=== PATIENT | female | born 1965 | race Caucasian/White ===

== ENCOUNTER → 2016-09-27 | Outpatient (CLI) | payer OTHER ==
--- NOTE | 2016-09-27 14:30 | MR ---
MR lumbar spine wo con DDD, Pain Multiplanar, multiecho imaging of the lumbar spine was obtained without contrast on a 3 Noemy magnet. REFERENCE: Previous study dated 03/07/2006. FINDINGS: Paraspinal soft tissues are normal. Vertebral body height and alignment are maintained. There is no spondylolysis or spondylolisthesis. Cord signal is normal. The conus ends normally at the level of the inferior endplate of L3. At T12-L1, no abnormality is identified. At L1-2, there is mild capsulitis in the facets. At L2-3, there is mild hypertrophic change and capsulitis within the facets. At L3-4, there is mild hypertrophic change within the facets. At L4-5, there is disc space loss. There is fatty endplate change. There is a broad-based disc protru devin extending into the intervertebral foramina bilaterally causing mild, bilateral intervertebral fo raminal narrowing. There is mild hypertrophic change in the facets. At L5-S1, there is a diffuse disc displacement. The intervertebral foramina are well maintained. Ther e hypertrophic changes and capsulitis within the facets. IMPRESSION: 1. DIFFUSE FACET ARTHROPATHY. 2. BROAD-BASED DISC PROTRUSION, L4-5 CAUSING MILD, BILATERAL INTERVERTEBRAL FORAMINAL NARROWING.
== END | disposition home or self-care (01) ==
LOC: RADMRIMAIN 11:55
PROVIDERS: ATTEND Psychiatry & Neurology Neurology
DX: M99.73 Connective tissue and disc stenosis of intervertebral foramina of lumbar region (principal); M51.26 Other intervertebral disc displacement, lumbar region; M46.96 Unspecified inflammatory spondylopathy, lumbar region
CPT/HCPCS: 72148

== ENCOUNTER 2016-12-17 16:06 | Observation (INO) | payer OTHER ==
[2016-12-17] MEDS ORDERED: NITROGLYCERIN OINT 1 INCH/GM PACKET TOPICAL STA (16:27)
[2016-12-17] MEDS ORDERED: ASPIRIN 81 MG CHEW PO STA (16:27)
--- NOTE | 2016-12-17 16:30 | ED ---
General Adult HPI - General Chief complaint: Chest Pain Stated complaint: chest pain Time Seen by Provider: 12/17/16 16:10 Source: patient, EMS, RN notes reviewed Mode of arrival: EMS - History of Present Illness Initial comments: This is a 51-year-old female presents emergency Department with a past medical history significant for smoking but she did quit 3 years ago. Patient has a past history for high cholesterol. Patient states she has a history of angina as well. Patient states she started having chest pain 3 days ago and has been intermittent about 3 times a day lasting about 20 minutes a time. Patient states the pain is in the center chest goes a little bit to the right down her left arm and into her jaw. Patient states she's mild short of breath with this occurs. Patient denies any diaphoresis. Patient denies any nausea vomiting. Patient states she has had no abdominal pain. Patient denies any diarrhea recently. Patient denies any recent fever chills or cough. Patient denies any lightheadedness dizziness or near syncopal episode. Patient states this pain is different than the pain she normally gets with her typical angina. Patient states she does have a strong family history of heart disease. - Related Data Home Medications Medication Instructions Recorded Confirmed ALPRAZolam [Xanax] 0.5 mg PO QID PRN 12/17/16 12/17/16 Aspirin 81 mg PO DAILY 12/17/16 12/17/16 Cholecalciferol [Vitamin D3] 400 unit PO DAILY 12/17/16 12/17/16 Gemfibrozil [Lopid] 600 mg PO DAILY 12/17/16 12/17/16 HYDROcodone/APAP 7.5-325MG [[place] 1 tab PO QID PRN 12/17/16 12/17/16 7.5-325] [place]-3 Fatty Acids [[place]-3] 1,000 mg PO DAILY 12/17/16 12/17/16 Orphenadrine [Norflex] 100 mg PO BID 12/17/16 12/17/16 PARoxetine HCL [Paxil] 20 mg PO DAILY 12/17/16 12/17/16 Pantoprazole [Protonix] 40 mg PO DAILY 12/17/16 12/17/16 Ranitidine HCl [Zantac] 150 mg PO BID 12/17/16 12/17/16 Topiramate [Topiramate ER] 150 mg PO DAILY 12/17/16 12/17/16 Triphrocaps 1 cap PO HS 12/17/16 12/17/16 clonazePAM [KlonoPIN] 1 mg PO HS 12/17/16 12/17/16 Allergies Allergy/AdvReac Type Severity Reaction Status Date / Time cephalexin [From Keflex] Allergy Rash/Hives Verified 12/17/16 16:56 iodine Allergy Unknown Verified 12/17/16 16:56 metronidazole [From Flagyl] Allergy Rash/Hives Verified 12/17/16 16:56 Penicillins Allergy Unknown Verified 12/17/16 16:56 rosuvastatin [From Crestor] Allergy Unknown Verified 12/17/16 16:56 sulfamethoxazole Allergy Rash/Hives Verified 12/17/16 16:56 [From Bactrim] trimethoprim [From Bactrim] Allergy Rash/Hives Verified 12/17/16 16:56 Review of Systems ROS Statement: Those systems with pertinent positive or pertinent negative responses have been documented in the HPI. ROS Other: All systems not noted in ROS Statement are negative. Past Medical History Past Medical History: Chest Pain / Angina, Hyperlipidemia, Renal Disease History of Any Multi-Drug Resistant Organisms: None Reported Past Surgical History: Section, Cholecystectomy, Orthopedic Surgery Past Psychological History: Anxiety, Depression Smoking Status: Former smoker Past Alcohol Use History: None Reported Past Drug Use History: None Reported General Exam - General Exam Comments Initial Comments: GENERAL: Patient is well-developed and well-nourished. Patient is nontoxic and well- hydrated and is in mild distress. ENT: Neck is soft and supple. No significant lymphadenopathy is noted. Oropharynx is clear. Moist mucous membranes. Neck has full range of motion without eliciting any pain. EYES: The sclera were anicteric and conjunctiva were pink and moist. Extraocular movements were intact and pupils were equal round and reactive to light. Eyelids were unremarkable. PULMONARY: Unlabored respirations. Good breath sounds bilaterally. No audible rales rhonchi or wheezing was noted. CARDIOVASCULAR: There is a regular rate and rhythm without any murmurs gallops or rubs. ABDOMEN: Soft and nontender with normal bowel sounds. No palpable organomegaly was noted. There is no palpable pulsatile mass. SKIN: Skin is clear with no lesions or rashes and otherwise unremarkable. NEUROLOGIC: Patient is alert and oriented x3. Cranial nerves II through XII are grossly intact. Motor and sensory are also intact. Normal speech, volume and content. Symmetrical smile. MUSCULOSKELETAL: Normal extremities with adequate strength and full range of motion. No lower extremity swelling or edema. No calf tenderness. LYMPHATICS: No significant lymphadenopathy is noted PSYCHIATRIC: Normal psychiatric evaluation. Normal interpersonal interactions appears functionally intact in deals appropriately with others. No signs of depression. No signs of anxiety. Course Vital Signs 12/17/16 12/17/16 16:12 16:57 Temperature 98.4 F Pulse Rate 65 72 Respiratory 16 18 Rate Blood Pressure 153/81 122/78 O2 Sat by Pulse 96 98 Oximetry Medical Decision Making - Medical Decision Making EKG shows normal sinus rhythm at 69 bpm AR interval 166 QRS is 84 QT interval 414 QTC is 443. Patient's EKG shows no ST segment elevation or depression or T wave abnormalities are noted. Patient's chest x-ray shows no acute abnormality. Patient had chest pain going down the arm and up into the jaw as well as some shortness of breath/started the patient on heparin because she stated that these pains are worse than her normal angina. - Lab Data Result diagrams: 12/17/16 16:22 12/17/16 16:22 Lab Results 12/17/16 12/17/16 12/17/16 Range/Units 16:22 16:22 16:22 WBC 6.4 (3.8-10.6) k/uL RBC 3.77 L (3.80-5.40) m/uL Hgb 12.6 (11.4-16.0) gm/dL Hct 38.2 (34.0-46.0) % MCV 101.4 H (80.0-100.0) fL MCH 33.5 (25.0-35.0) pg MCHC 33.0 (31.0-37.0) g/dL RDW 12.8 (11.5-15.5) % Plt Count 198 (150-450) k/uL Neutrophils % 56 % Lymphocytes % 36 % Monocytes % 4 % Eosinophils % 1 % Basophils % 1 % Neutrophils # 3.6 (1.3-7.7) k/uL Lymphocytes # 2.3 (1.0-4.8) k/uL Monocytes # 0.3 (0-1.0) k/uL Eosinophils # 0.1 (0-0.7) k/uL Basophils # 0.0 (0-0.2) k/uL Macrocytosis Slight PT (9.0-12.0) sec INR (<1.1) APTT (22.0-30.0) sec Sodium 142 (137-145) mmol/L Potassium 4.4 (3.5-5.1) mmol/L Chloride 110 H (98-107) mmol/L Carbon Dioxide 21 L (22-30) mmol/L Anion Gap 11 mmol/L BUN 25 H (7-17) mg/dL Creatinine 1.08 H (0.52-1.04) mg/dL Est GFR (MDRD) Af Amer >60 (>60 ml/min/1.73 sqM) Est GFR (MDRD) Non-Af 53 (>60 ml/min/1.73 sqM) Glucose 98 (74-99) mg/dL Calcium 9.1 (8.4-10.2) mg/dL Magnesium 2.2 (1.6-2.3) mg/dL Total Bilirubin 0.6 (0.2-1.3) mg/dL AST 30 (14-36) U/L ALT 40 (9-52) U/L Alkaline Phosphatase 104 (38-126) U/L Total Creatine Kinase 104 (30-135) U/L CK-MB (CK-2) 0.9 (0.0-2.4) ng/mL CK-MB (CK-2) Rel Index 0.9 Troponin I <0.012 (0.000-0.034) ng/mL Total Protein 7.8 (6.3-8.2) g/dL Albumin 4.1 (3.5-5.0) g/dL Amylase 56 (30-110) U/L Lipase 94 (23-300) U/L /12/29 Range/Units 16:40 WBC (3.8-10.6) k/uL RBC (3.80-5.40) m/uL Hgb (11.4-16.0) gm/dL Hct (34.0-46.0) % MCV (80.0-100.0) fL MCH (25.0-35.0) pg MCHC (31.0-37.0) g/dL RDW (11.5-15.5) % Plt Count (150-450) k/uL Neutrophils % % Lymphocytes % % Monocytes % % Eosinophils % % Basophils % % Neutrophils # (1.3-7.7) k/uL Lymphocytes # (1.0-4.8) k/uL Monocytes # (0-1.0) k/uL Eosinophils # (0-0.7) k/uL Basophils # (0-0.2) k/uL Macrocytosis PT 10.2 (9.0-12.0) sec INR 1.0 (<1.1) APTT 24.4 (22.0-30.0) sec Sodium (137-145) mmol/L Potassium (3.5-5.1) mmol/L Chloride (98-107) mmol/L Carbon Dioxide (22-30) mmol/L Anion Gap mmol/L BUN (7-17) mg/dL Creatinine (0.52-1.04) mg/dL Est GFR (MDRD) Af Amer (>60 ml/min/1.73 sqM) Est GFR (MDRD) Non-Af (>60 ml/min/1.73 sqM) Glucose (74-99) mg/dL Calcium (8.4-10.2) mg/dL Magnesium (1.6-2.3) mg/dL Total Bilirubin (0.2-1.3) mg/dL AST (14-36) U/L ALT (9-52) U/L Alkaline Phosphatase (38-126) U/L Total Creatine Kinase (30-135) U/L CK-MB (CK-2) (0.0-2.4) ng/mL CK-MB (CK-2) Rel Index Troponin I (0.000-0.034) ng/mL Total Protein (6.3-8.2) g/dL Albumin (3.5-5.0) g/dL Amylase (30-110) U/L Lipase (23-300) U/L Critical Care Time Critical Care Time: Yes Total Critical Care Time: 35 Disposition Clinical Impression: Unstable angina pectoris Disposition: ADMITTED IP TO THIS [facility] Time of Disposition: 17:59
[2016-12-17 16:50] LABS: Basophils % (A) 1 %; CH 33.5; CHCM 33.2; Eosinophils # (A) 0.1 k/uL (0-0.7); Eosinophils % (A) 1 %; HCT 38.2 % (34.0-46.0); HDW 2.81; HGB 12.6 gm/dL (11.4-16.0); Luc # (Auto) 0.15; Luc % (Auto) 2; Lymphocytes # (A) 2.3 k/uL (1.0-4.8); Lymphocytes % (A) 36 %; MCH 33.5 pg (25.0-35.0); MCV 101.4 fL (80.0-100.0); Macrocytosis Slight; Monocytes # (A) 0.3 k/uL (0-1.0); Monocytes % (A) 4 %; Neutrophils # (A) 3.6 k/uL (1.3-7.7); Neutrophils % (A) 56 %; RBC 3.77 m/uL (3.80-5.40); RDW 12.8 % (11.5-15.5); WBC 6.4 k/uL (3.8-10.6); WBC (Perox) 6.52
--- NOTE | 2016-12-17 16:52 | XR ---
EXAMINATION TYPE: XR chest 2V DATE OF EXAM: 12/17/2016 4:49 PM COMPARISON: 05/05/2010 HISTORY: Chest pain, dyspnea, and numbness. TECHNIQUE: Frontal and lateral views of the chest are obtained. FINDINGS: There is no focal air space opacity, pleural effusion, or pneumothorax seen. The cardiac silhouette size is within normal limits. The osseous structures are intact. Previously seen right-s ided dual-lumen dialysis catheter has been removed in the interim. IMPRESSION: No acute cardiopulmonary process.
[2016-12-17 16:57] LABS: ALT 40 U/L (9-52); AST 30 U/L (14-36); Alkaline Phosphatase 104 U/L (38-126); Amylase 56 U/L (30-110); Anion Gap 11 mmol/L; Blood Urea Nitrogen 25 mg/dL (7-17); Calcium 9.1 mg/dL (8.4-10.2); Carbon Dioxide 21 mmol/L (22-30); Chloride 110 mmol/L (98-107); Glucose 98 mg/dL (74-99); Magnesium 2.2 mg/dL (1.6-2.3); Non-African American GFR(MDRD) 53 (>60 ml/min/1.73 sqM); Potassium 4.4 mmol/L (3.5-5.1); Sodium 142 mmol/L (137-145); Total Bilirubin 0.6 mg/dL (0.2-1.3); Total Protein 7.8 g/dL (6.3-8.2)
[2016-12-17 16:59] LABS: Partial Thromboplastin Time 24.4 sec (22.0-30.0); Prothrombin Time 10.2 sec (9.0-12.0)
[2016-12-17 17:17] LABS: Creatine Kinase 104 U/L (30-135)
[2016-12-17 17:29] LABS: Creatine Kinase MB 0.9 ng/mL (0.0-2.4); Troponin I <0.012 ng/mL (0.000-0.034)
[2016-12-17] MEDS ORDERED: HEPARIN SODIUM,PORCINE 5,000 UNIT/ML 1 ML VIAL IV ONE (17:58)
[2016-12-17] MEDS ORDERED: HEPARIN SODIUM,PORCINE/D5W PMX 25,000 UNIT in DEXTROSE/WATER 1 500ML.BAG IV SCH (18:00)
[2016-12-17] MEDS ORDERED: NITROGLYCERIN SL TABS 0.4 MG TAB SUBLINGUAL PRN (18:02)
[2016-12-17] MEDS ORDERED: SODIUM CHLORIDE 0.9% 1,000 ML IV SCH (18:15)
[2016-12-17] MEDS ORDERED: ALPRAZolam 0.5 MG TAB PO PRN (20:52)
--- NOTE | 2016-12-17 20:57 | HP ---
DATE OF ADMISSION: 12/17/2016 CHIEF COMPLAINT: Chest pain. HISTORY OF PRESENT ILLNESS: This is the first admission for this 51-year-old A0 female. She presented to the emergency room with numbness in the left arm and in the right side of the neck. She had no aching in the jaw. Her EKG and enzymes are normal, but she is admitted for observation. She has not had a personal history of heart disease but has a strong family history. REVIEW OF SYSTEMS: She has had no TIAs, CVAs, neurologic deficits, change in vision or hearing, cough, hemoptysis, sputum production, lung disease, murmurs, rheumatic fever, orthopnea, PND, palpitations, syncope, abdominal pain, nausea, hematemesis, melena, hematochezia, colitis, diverticulosis, diverticulitis, hemorrhoids, jaundice, hepatitis, cirrhosis, etc. She has had no hematuria, frequency, urgency, renal disease, diabetes, etc. ALLERGIES: 1. PENICILLIN. 2. CEPHALOSPORINS. 3. SULFA. 4. FLAGYL. 5. CRESTOR. 6. IODINE. Surgically she has had C-sections and a right knee replacement. She has also had a cholecystectomy. She once had a port placed for dialysis when she developed renal failure secondary to Crestor (?). Medications include: 1. Protonix. 2. Paxil. 3. Topamax. 4. Gemfibrozil. 5. Klonopin. 6. Zantac. 7. Norflex. 8. Xanax. 9. Aspirin. 10. Vicodin 7.5. PHYSICAL EXAMINATION: Blood pressure is 144/77 with a pulse 68, respirations of 38, and she is afebrile. In general she appeared to be overweight and in no acute distress. Skin color is normal. Skin is warm and dry. Lymph nodes are not enlarged. Head, ears, eyes, nose, mouth and throat are normal. Neck veins are not distended. Thyroid is not enlarged. Chest is clear. Cardiac exam is normal. Abdomen is soft, nontender. Extremities are normal. Neurologically she is intact. IMPRESSION: 1. Chest pain. 2. History of ( ) 3. History of renal failure. PLAN: 1. Bed rest. 2. IV fluids. 3. Serial EKGs and enzymes.
[2016-12-17 22:29] LABS: Creatine Kinase 85 U/L (30-135)
[2016-12-17] MEDS: HYDROcodone/APAP 5-325MG 1 EACH TAB PO PRN (22:34)
[2016-12-17] MEDS: CYCLOBENZAPRINE 10 MG TAB PO SCH (22:35)
[2016-12-17] MEDS: FAMOTIDINE 20 MG TAB PO SCH (22:35)
[2016-12-17 22:42] LABS: Creatine Kinase MB 0.8 ng/mL (0.0-2.4); Troponin I <0.012 ng/mL (0.000-0.034)
[2016-12-18 00:39] VITALS: BMI 27.5
[2016-12-18] MEDS: NITROGLYCERIN OINT 1 INCH/GM PACKET TOPICAL SCH ×2 (01:04→11:09)
[2016-12-18] MEDS ORDERED: HEPARIN SODIUM,PORCINE 5,000 UNIT/ML 1 ML VIAL IV PRN (03:56)
[2016-12-18 06:08] LABS: Creatine Kinase 99 U/L (30-135)
[2016-12-18 06:21] LABS: Creatine Kinase MB 0.9 ng/mL (0.0-2.4); Troponin I <0.012 ng/mL (0.000-0.034)
[2016-12-18] MEDS: HYDROcodone/APAP 5-325MG 1 EACH TAB PO PRN (06:33)
[2016-12-18 06:39] LABS: Cholesterol 308 mg/dL (<200); HDL Cholesterol 49 mg/dL (40-60); Triglycerides 206 mg/dL (<150)
[2016-12-18 08:34] VITALS: BP 109/67; PULSE 77; RESP 16; TEMP 98.1
[2016-12-18] MEDS: FAMOTIDINE 20 MG TAB PO SCH (08:36)
[2016-12-18] MEDS: CYCLOBENZAPRINE 10 MG TAB PO SCH (08:37)
[2016-12-18] MEDS ORDERED: TOPIRAMATE 25 MG TAB PO SCH (09:00)
[2016-12-18] MEDS ORDERED: CHOLECALCIFEROL 400 UNIT TAB PO SCH (09:00)
[2016-12-18] MEDS ORDERED: PANTOPRAZOLE 40 MG TABLET PO SCH (09:00)
[2016-12-18] MEDS ORDERED: ASPIRIN 325 MG TAB PO SCH (09:00)
[2016-12-18] MEDS ORDERED: PARoxetine 20 MG TAB PO SCH (09:00)
--- NOTE | 2016-12-18 09:32 | P.CRDCN ---
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 The symptoms started about a week ago with intermittent episodes of chest discomfort in the mid of the chest as a sharp kind of discomfort. No specific symptoms of shortness of breath, sweating, dizziness or lightheaded this of syncope. The cardiac enzymes were checked and came in to be unremarkable. The EKG showed sinus rhythm without any ischemic changes. The patient is not aware of any prior history of coronary artery disease. The patient was ruled out for acute coronary event. She needs to have a stress test done. Unfortunately we come to stress test during the weekend. I recommended getting the patient up and around walking and if she has no more chest discomfort she might be able to be discharged home and have the test done as an outpatient. Past Medical History Past Medical History: Chest Pain / Angina, GERD/Reflux, Hyperlipidemia, Renal Disease History of Any Multi-Drug Resistant Organisms: None Reported Past Surgical History: Section, Cholecystectomy, Orthopedic Surgery Past Anesthesia/Blood Transfusion Reactions: No Reported Reaction Past Psychological History: Anxiety, Depression Smoking Status: Former smoker Past Alcohol Use History: None Reported Past Drug Use History: None Reported Medications and Allergies Home Medications Medication Instructions Recorded Confirmed Type ALPRAZolam [Xanax] 0.5 mg PO QID PRN 12/17/16 12/17/16 History Aspirin 81 mg PO DAILY 12/17/16 12/17/16 History Cholecalciferol [Vitamin D3] 400 unit PO DAILY 12/17/16 12/17/16 History Gemfibrozil [Lopid] 600 mg PO DAILY 12/17/16 12/17/16 History HYDROcodone/APAP 7.5-325MG [[place] 1 tab PO QID PRN 12/17/16 12/17/16 History 7.5-325] [place]-3 Fatty Acids [[place]-3] 1,000 mg PO DAILY 12/17/16 12/17/16 History Orphenadrine [Norflex] 100 mg PO BID 12/17/16 12/17/16 History PARoxetine HCL [Paxil] 20 mg PO DAILY 12/17/16 12/17/16 History Pantoprazole [Protonix] 40 mg PO DAILY 12/17/16 12/17/16 History Ranitidine HCl [Zantac] 150 mg PO BID 12/17/16 12/17/16 History Topiramate [Topiramate ER] 150 mg PO DAILY 12/17/16 12/17/16 History Triphrocaps 1 cap PO HS 12/17/16 12/17/16 History clonazePAM [KlonoPIN] 1 mg PO HS 12/17/16 12/17/16 History Allergies Allergy/AdvReac Type Severity Reaction Status Date / Time cephalexin [From Keflex] Allergy Rash/Hives Verified 12/17/16 16:56 iodine Allergy Unknown Verified 12/17/16 16:56 metronidazole [From Flagyl] Allergy Rash/Hives Verified 12/17/16 16:56 Penicillins Allergy Unknown Verified 12/17/16 16:56 rosuvastatin [From Crestor] Allergy Unknown Verified 12/17/16 16:56 sulfamethoxazole Allergy Rash/Hives Verified 12/17/16 16:56 [From Bactrim] trimethoprim [From Bactrim] Allergy Rash/Hives Verified 12/17/16 16:56 Physical Exam Vitals: Vital Signs Temp Pulse Pulse Pulse Resp BP BP 12/18/16 08:00 98.1 F 77 16 109/67 12/18/16 03:55 98 F 71 18 94/52 12/18/16 03:16 18 12/18/16 00:00 18 12/17/16 20:00 18 12/17/16 19:20 97.8 F 80 18 105/58 12/17/16 18:58 98.3 F 77 18 101/56 12/17/16 18:15 98.4 F 74 18 99/52 Pulse Ox 12/18/16 08:00 96 12/18/16 03:55 97 12/18/16 03:16 12/18/16 00:00 12/17/16 20:00 12/17/16 19:20 96 12/17/16 18:58 99 12/17/16 18:15 97 Intake and Output 12/17/16 12/18/16 12/18/16 22:59 06:59 14:59 Intake Total 165.975 420 Balance 165.975 420 Intake: Intake, IV Titration 165.975 Amount Heparin Sodium,Porcine/ 165.975 D5w Pmx 25,000 unit In Dextrose/Water 1 500ml. bag @ 12 UNITS/KG/HR 17. 41 mls/hr IV .Q24H DIANNA Rx #:[id number] Oral 420 Other: Voiding Method Toilet # Voids 2 Weight 72.8 kg - Constitutional General appearance: no acute distress - Respiratory Respiratory: bilateral: CTA - Cardiovascular Rhythm: regular Heart sounds: normal: S1, S2 Results 12/17/16 16:22 12/17/16 16:22 Cardiac Enzymes 12/17/16 12/18/16 Range/Units 21:54 05:35 CK-MB (CK-2) 0.8 0.9 (0.0-2.4) ng/mL Troponin I <0.012 <0.012 (0.000-0.034) ng/mL Coagulation 12/18/16 Range/Units 01:10 APTT 44.1 H (22.0-30.0) sec Lipids 12/18/16 Range/Units 05:35 Triglycerides 206 H (<150) mg/dL Cholesterol 308 H (<200) mg/dL HDL Cholesterol 49 (40-60) mg/dL Current Medications Generic Name Dose Route Start Last Admin Trade Name Freq PRN Reason Stop Dose Admin Hydrocodone Bitart/Acetaminophen 1 each 12/17/16 20:57 12/18/16 06:33 Zap 5-325 PO 1 each Q6HR PRN Administration Pain Alprazolam 0.25 mg 12/17/16 20:52 12/17/16 22:35 Xanax PO 0.25 mg QID PRN Administration Anxiety Aspirin 325 mg 12/18/16 09:00 12/18/16 08:36 Aspirin PO 325 mg DAILY DIANNA Administration Cholecalciferol 400 unit 12/18/16 09:00 12/18/16 08:36 Vitamin D3 PO 400 unit DAILY DIANNA Administration Cyclobenzaprine HCl 10 mg 12/17/16 21:30 12/18/16 08:37 Flexeril PO 10 mg BID DIANNA Administration Famotidine 20 mg 12/17/16 21:30 12/18/16 08:36 Pepcid PO 20 mg BID DIANNA Administration Heparin Sodium (Porcine) 0 unit 12/18/16 03:56 Heparin IV PER PROTOCOL PRN Low PTT Protocol Heparin Sodium/Dextrose 25,000 500 mls @ 17.41 mls/hr 12/17/16 18:00 03:55 unit/ IV Solution IV 13.91 units/kg/hr .Q24H DIANNA 20.2 mls/hr Protocol Titration 12 UNITS/KG/HR Sodium Chloride 1,000 mls @ 20 mls/hr 12/17/16 18:15 12/17/16 18:22 Saline 0.9% IV 20 mls/hr .Q24H DIANNA Administration Multivitamins 1 each 12/18/16 12:00 Theragran PO DAILY@1200 [facility] Nitroglycerin 1 inch 12/18/16 00:00 12/18/16 01:04 Nitro-Bid Oint TOPICAL Not Given Q6HR [facility] Nitroglycerin 0.4 mg 12/17/16 18:02 12/18/16 08:43 Nitrostat SUBLINGUAL 0.4 mg Q5M PRN Administration Chest Pain Pantoprazole Sodium 40 mg 12/18/16 09:00 12/18/16 08:36 Protonix PO 40 mg DAILY DIANNA Administration Paroxetine HCl 20 mg 12/18/16 09:00 12/18/16 08:36 Paxil PO 20 mg DAILY DIANNA Administration Topiramate 75 mg 12/18/16 09:00 12/18/16 08:36 Topamax PO 75 mg BID DIANNA Administration Intake and Output 12/17/16 12/18/16 12/18/16 22:59 06:59 14:59 Intake Total 165.975 420 Balance 165.975 420 Intake: Intake, IV Titration 165.975 Amount Heparin Sodium,Porcine/ 165.975 D5w Pmx 25,000 unit In Dextrose/Water 1 500ml. bag @ 12 UNITS/KG/HR 17. 41 mls/hr IV .Q24H DIANNA Rx #:[id number] Oral 420 Other: Voiding Method Toilet # Voids 2 Weight 72.8 kg Assessment and Plan Plan: Assessment #1 intermittent episodes of atypical chest discomfort #2 dyslipidemia #3 history of smoking Plan #1 the patient was ruled out for acute coronary event #2 stress test as an outpatient
[2016-12-18] MEDS ORDERED: MULTIVITAMINS, THERA 1 EACH TAB PO SCH (12:00)
--- NOTE | 2016-12-18 13:24 | DS ---
DATE OF ADMISSION: 12/17/2016 DATE OF DISCHARGE: 12/18/2016 CHIEF COMPLAINT: Atypical chest pain. HISTORY OF PRESENT ILLNESS: The details of this lady's history and physical can be found in the initial workup. LABORATORY STUDIES: While she was in the hospital she had laboratory studies, the details can be found in the laboratory section of her chart. COURSE IN THE HOSPITAL: After admission, she was placed on bed rest and started on intravenous fluids and she had serial EKGs and enzymes and they were normal. She continued to have chest pain and such she was referred to cardiology. They did an evaluation and felt that she could be safely discharged. She will go home on the usual activity, diet and medications and will follow up with her own physician or with us next week. FINAL DIAGNOSES: 1. Chest pain. 2. History of coronary artery disease. OPERATIONS: None. CONSULTATIONS: Cardiology. She is improved.
== END 2016-12-18 11:40 | disposition home or self-care (01) ==
LOC: EC 16:06 → 3OBS 18:02
PROVIDERS: ADMIT Family Medicine; ATTEND Family Medicine
DX: R07.89 Other chest pain (principal); E78.5 Hyperlipidemia, unspecified; E78.00 Pure hypercholesterolemia, unspecified; I25.10 Atherosclerotic heart disease of native coronary artery without angina pectoris; F41.9 Anxiety disorder, unspecified; K21.9 Gastro-esophageal reflux disease without esophagitis; F32.9 Major depressive disorder, single episode, unspecified; Z87.891 Personal history of nicotine dependence; Z79.899 Other long term (current) drug therapy; Z79.82 Long term (current) use of aspirin; Z88.1 Allergy status to other antibiotic agents; Z88.3 Allergy status to other anti-infective agents; Z88.0 Allergy status to penicillin; Z88.2 Allergy status to sulfonamides; Z88.8 Allergy status to other drugs, medicaments and biological substances; Z82.49 Family history of ischemic heart disease and other diseases of the circulatory system
CPT/HCPCS: 96366 ×2; 96376; 96365; 99291; 36415; 93005; 80061; 80053; 82150; 82550 ×2; 82553 ×2; 83690; 83735; 84484 ×2; 85025; 85610; 85730 ×2; 71020; G0378 ×2; J1644 ×2

== ENCOUNTER → 2017-02-11 | Outpatient (CLI) | payer OTHER ==
[2017-02-11 12:13] LABS: CH 33.6; HDW 2.91; HGB 13.2 gm/dL (11.4-16.0); MCH 34.5 pg (25.0-35.0); MCHC 33.7 g/dL (31.0-37.0); MCV 102.3 fL (80.0-100.0); Macrocytosis Slight; RBC 3.82 m/uL (3.80-5.40); RDW 13.3 % (11.5-15.5)
[2017-02-11 12:43] LABS: Potassium 5.3 mmol/L (3.5-5.1)
== END | disposition home or self-care (01) ==
LOC: LABPAT 11:32
PROVIDERS: ATTEND Internal Medicine Interventional Cardiology
DX: Z01.812 Encounter for preprocedural laboratory examination (principal); I25.10 Atherosclerotic heart disease of native coronary artery without angina pectoris
CPT/HCPCS: 80051; 82565; 84520; 85027

== ENCOUNTER 2017-02-17 06:41 | Day surgery (SDC) | payer OTHER ==
[2017-02-14 14:50] VITALS: BMI 30.5
[~2017-02-17 06:41] MED LIST: ALPRAZolam 0.25 MG TAB PO PRN; ALPRAZolam 0.5 MG TAB PO PRN; ASPIRIN 325 MG TAB PO STA; ATORVASTATIN 80 MG TAB PO STA; NITROGLYCERIN SL TABS 0.4 MG TAB SUBLINGUAL PRN; SODIUM CHLORIDE 0.9% 1,000 ML in EMPTY BAG 1 BAG IV ONE
[2017-02-17 07:31] VITALS: RESP 16; TEMP 98.6
[2017-02-17] MEDS ORDERED: INSULIN LISPRO (humaLOG) 300 UNIT/3 ML VIAL SQ STA (07:38)
[2017-02-17 07:42] LABS: Glucose,Whole Blood 216 mg/dL (75-99)
[2017-02-17] MEDS ORDERED: LIDOCAINE 2% INJ 20 MG/ML SQ ONE (08:39)
[2017-02-17] MEDS ORDERED: MIDAZOLAM 2 MG/2 ML VIAL IV ONE (08:39)
[2017-02-17] MEDS: VERAPAMIL SYRINGE (5 MG/10 ML) INTRAARTER ONE ×2 (08:41→09:13)
[2017-02-17] MEDS ORDERED: BIVALIRUDIN BOLUS 250 MG/50 ML IV ONE (09:04)
[2017-02-17] MEDS ORDERED: BIVALIRUDIN 250 MG in SODIUM CHLORIDE 0.9% 50 ML IV ONE (09:06)
[2017-02-17] MEDS ORDERED: IODIXANOL 320 MG/ML 100 ML INTRAARTER ONE (09:13)
[2017-02-17] MEDS ORDERED: RX INFO: IV CONTRAST WAS GIVEN 1 EACH MISC MISCELLANE PRN (09:19)
--- NOTE | 2017-02-17 09:27 | P.PCN ---
Date of Procedure: 02/17/17 Preoperative Diagnosis: Postoperative Diagnosis: Procedure(s) Performed: Implants: Indications for Procedure: Operative Findings: Description of Procedure: CARDIAC CATHETERIZATION PERFORMING PHYSICIAN: Angelo Min MD, RPVI PROCEDURE PERFORMED: 1. Selective right and left coronary angiogram 2. Fractional flow reserve FFR of the LAD Indication This is a pleasant 52-year-old female patient with a known diabetes, hypertension, dyslipidemia, was experiencing intermittent episodes of chest discomfort consistent with angina. She was brought today to undergo a heart catheterization. APPROACH: Right radial artery COMPLICATION None LEVEL OF SEDATION Moderate with a sedation length of 46 minutes PROCEDURE DESCRIPTION: After obtaining an informed consent and explaining the procedure benefits, risks , and complications, the patient was brought to cardiac cath lab technologist. Local anesthesia was performed using lidocaine subcutaneously. The right radial artery was cannulated using Seldinger technique, the guidewire passed easily, following that we advanced a 6-[place] sheath dilator assembly, the wire and dilator were removed and sheath was flushed. Following that, 2 mg of verapamil along with 3000 unit heparin were given. Selective right and left coronary angiogram using a 6-[place] JR4 and JL 3.5 catheters. Following that we did fractional flow reserve of the LAD. The procedure was completed there was no complication. SELECTIVE CORONARY ANGIOGRAM: The right coronary artery: Is a large caliber vessel and its a dominant vessel. The right coronary artery is diffusely diseased then its 100% occluded by the bifurcation into PDA and PLV branches. It does feel by collateral from the left coronary system. Left main: Is angiographically normal. The left circumflex: It is a large caliber vessel and its and on dominant vessel. The proximal left circumflex appears to have mild disease only and gives rises into a large first OM branch which appears to have mild disease only. The mid left circumflex appears to have mild disease only and the left circumflex distally appears to be angiographically normal. The left anterior descending artery: The proximal LAD appeared to be angiographically normal. The mid LAD by the bifurcation of the first diagonal branch appears to have a lesion seems to be in the range of 60%. The FFR was performed and came in to be ischemic and came in to be out at 0.78. FFR of the LAD: Anticoagulation was initiated using Angiomax. Subsequently and after zeroing the Doppler wire and equalizing between the Doppler wire and the guiding catheter which was JL 3.5 guiding catheter we did an FFR per IV adenosine infusion and the FFR came in to be at 0.78 which is ischemic. 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 POSTPROCEDURE MANAGEMENT: An atherectomy and PCI of the LAD
[2017-02-17] MEDS ORDERED: SODIUM CHLORIDE 0.9% 1,000 ML IV SCH (09:30)
[2017-02-17 09:51] LABS: Glucose,Whole Blood 161 mg/dL (75-99)
[2017-02-17] MEDS ORDERED: ISOSORBIDE MONONITRATE ER 30 MG TAB.ER.24H PO STA (09:51)
[2017-02-17] MEDS ORDERED: HYDROcodone/APAP 7.5-325MG 1 EACH TAB ONE (13:58)
[2017-02-17 15:27] VITALS: BP 112/72; PULSE 16
== END 2017-02-17 16:32 | disposition home or self-care (01) ==
LOC: CATHCVL 06:41
PROVIDERS: ATTEND Internal Medicine Interventional Cardiology
DX: I25.110 Atherosclerotic heart disease of native coronary artery with unstable angina pectoris (principal); I25.82 Chronic total occlusion of coronary artery; E11.9 Type 2 diabetes mellitus without complications; I10 Essential (primary) hypertension; E78.5 Hyperlipidemia, unspecified; Z82.49 Family history of ischemic heart disease and other diseases of the circulatory system; Z79.82 Long term (current) use of aspirin; Z79.899 Other long term (current) drug therapy; Z88.1 Allergy status to other antibiotic agents; Z88.0 Allergy status to penicillin; Z88.2 Allergy status to sulfonamides; Z88.8 Allergy status to other drugs, medicaments and biological substances; Z91.09 Other allergy status, other than to drugs and biological substances; Z87.891 Personal history of nicotine dependence
CPT/HCPCS: 99152; 99153; 93571; 93454; C1887; C1769 ×3; C1894; J2001; J2250; Q9967; J0583; J1644

== ENCOUNTER → 2017-02-21 | Outpatient (CLI) | payer OTHER ==
[2017-02-21 14:45] LABS: Potassium 4.8 mmol/L (3.5-5.1)
== END | disposition home or self-care (01) ==
LOC: LABWHC1 13:46
PROVIDERS: ATTEND Internal Medicine Interventional Cardiology
DX: E78.5 Hyperlipidemia, unspecified (principal); E11.9 Type 2 diabetes mellitus without complications; I10 Essential (primary) hypertension; I25.10 Atherosclerotic heart disease of native coronary artery without angina pectoris; I25.82 Chronic total occlusion of coronary artery
CPT/HCPCS: 36415; 80048

== ENCOUNTER 2017-03-08 07:30 | Day surgery (SDC) | payer OTHER ==
[~2017-03-08 07:30] MED LIST changes: -ATORVASTATIN 80 MG TAB PO STA; -NITROGLYCERIN SL TABS 0.4 MG TAB SUBLINGUAL PRN
[2017-03-08 08:25] LABS: Calcium 9.5 mg/dL (8.4-10.2); Potassium 4.5 mmol/L (3.5-5.1)
[2017-03-08] MEDS ORDERED: MIDAZOLAM 2 MG/2 ML VIAL IVP ONE ×2 (11:46→12:19)
[2017-03-08] MEDS ORDERED: LIDOCAINE 2% INJ 20 MG/ML SQ ONE (11:55)
[2017-03-08] MEDS ORDERED: BIVALIRUDIN BOLUS 250 MG/50 ML IV ONE (12:01)
[2017-03-08] MEDS ORDERED: BIVALIRUDIN 250 MG in SODIUM CHLORIDE 0.9% 35 ML IV ONE (12:01)
[2017-03-08] MEDS: NITROGLYCERIN 1000MCG/10ML SYRINGE INTRACORON ONE ×3 (12:32→13:03)
[2017-03-08] MEDS ORDERED: BIVALIRUDIN 250 MG in SODIUM CHLORIDE 0.9% 50 ML IV ONE (12:43)
[2017-03-08] MEDS ORDERED: HYDROmorphone 2 MG/ML 1 ML SYRINGE IVP ONE (12:46)
[2017-03-08] MEDS ORDERED: niCARdipine Syringe (1,000 mcg/10 mL) INTRACORON ONE (13:03)
[2017-03-08] MEDS ORDERED: PRASUGREL 10 MG TAB PO ONE (13:03)
[2017-03-08] MEDS ORDERED: IODIXANOL 320 MG/ML 100 ML INTRAARTER ONE (13:05)
[2017-03-08] MEDS ORDERED: SODIUM CHLORIDE 0.9% 1,000 ML IV SCH (13:15)
[2017-03-08] MEDS ORDERED: ATROPINE SULFATE 0.1 MG/ML 10ML SYRINGE IV PRN (13:15)
[2017-03-08] MEDS ORDERED: RX INFO: IV CONTRAST WAS GIVEN 1 EACH MISC MISCELLANE PRN (13:15)
[2017-03-08] MEDS ORDERED: NITROGLYCERIN SL TABS 0.4 MG TAB SUBLINGUAL PRN (13:15)
[2017-03-08] MEDS ORDERED: ZOLPIDEM 5 MG TAB PO PRN (13:15)
[2017-03-08] MEDS ORDERED: MAG HYDROX/AL HYDROX/SIMETH 30 ML CUP PO PRN (13:15)
[2017-03-08] MEDS: HYDROcodone/APAP 7.5-325MG 1 EACH TAB PO PRN ×2 (16:01→23:27)
[2017-03-08] MEDS: ALPRAZolam 0.5 MG TAB PO SCH ×2 (16:02→23:27)
[2017-03-08 20:06] VITALS: BMI 30.6
[2017-03-08 20:09] LABS: Glucose,Whole Blood 206 mg/dL (75-99)
[2017-03-08] MEDS: METOPROLOL TARTRATE 12.5 MG TAB PO SCH (20:51)
[2017-03-08] MEDS: FAMOTIDINE 20 MG TAB PO SCH (20:52)
[2017-03-08 20:58] LABS: Glucose,Whole Blood 128 mg/dL (75-99)
[2017-03-08] MEDS ORDERED: clonazePAM 1 MG TAB PO SCH (21:00)
[2017-03-08] MEDS ORDERED: B COMPLEX-VIT C-VIT E-ZINC 1 EACH TAB PO SCH (21:00)
[2017-03-08] MEDS: CYCLOBENZAPRINE 10 MG TAB PO SCH (23:30)
[2017-03-09 04:31] VITALS: TEMP 98.2
[2017-03-09 06:07] LABS: Glucose,Whole Blood 108 mg/dL (75-99)
[2017-03-09 07:22] LABS: Basophils % (A) 0 %; CH 33.1; CHCM 33.2; Eosinophils % (A) 0 %; HCT 35.5 % (34.0-46.0); HGB 11.7 gm/dL (11.4-16.0); Luc # (Auto) 0.13; Luc % (Auto) 2; Lymphocytes # (A) 2.3 k/uL (1.0-4.8); Lymphocytes % (A) 31 %; MCH 33.1 pg (25.0-35.0); MCHC 32.9 g/dL (31.0-37.0); MCV 100.5 fL (80.0-100.0); Macrocytosis Slight; Mean Platelet Volume 6.6; Monocytes # (A) 0.3 k/uL (0-1.0); Monocytes % (A) 4 %; Neutrophils # (A) 4.8 k/uL (1.3-7.7); Neutrophils % (A) 63 %; RBC 3.53 m/uL (3.80-5.40); RDW 13.5 % (11.5-15.5); WBC 7.5 k/uL (3.8-10.6); WBC (Perox) 8.15
[2017-03-09 07:31] LABS: Potassium 4.5 mmol/L (3.5-5.1)
[2017-03-09] MEDS: HYDROcodone/APAP 7.5-325MG 1 EACH TAB PO PRN (08:36)
[2017-03-09] MEDS: METOPROLOL TARTRATE 12.5 MG TAB PO SCH (08:37)
[2017-03-09] MEDS: FAMOTIDINE 20 MG TAB PO SCH (08:37)
[2017-03-09] MEDS: ALPRAZolam 0.5 MG TAB PO SCH (08:38)
[2017-03-09] MEDS: CYCLOBENZAPRINE 10 MG TAB PO SCH (08:38)
[2017-03-09] MEDS ORDERED: PRASUGREL 10 MG TAB PO SCH (09:00)
[2017-03-09] MEDS ORDERED: ASPIRIN 325 MG TAB PO SCH (09:00)
[2017-03-09] MEDS ORDERED: NON-FORMULARY DRUG (Omega-3 Fatty Acids [Omega-3] 1,000 MG) PO SCH (09:00)
[2017-03-09] MEDS ORDERED: PARoxetine 20 MG TAB PO SCH (09:00)
[2017-03-09] MEDS ORDERED: GEMFIBROZIL 600 MG TAB PO SCH (09:00)
[2017-03-09] MEDS ORDERED: CHOLECALCIFEROL 1,000 UNIT TAB PO SCH (09:00)
[2017-03-09] MEDS ORDERED: PANTOPRAZOLE 40 MG TABLET PO SCH (09:00)
[2017-03-09] MEDS ORDERED: TOPIRAMATE 25 MG TAB PO SCH (09:00)
[2017-03-09] MEDS ORDERED: ISOSORBIDE MONONITRATE ER 30 MG TAB.ER.24H PO SCH (09:00)
[2017-03-09 09:15] VITALS: BP 107/58; PULSE 68; RESP 18
--- NOTE | 2017-03-09 10:31 | PTCA ---
PERCUTANEOUS CORONARY INTERVENTION DATE OF SERVICE: 03/08/2017 PERFORMING PHYSICIAN: Angelo Min MD, warp placer. PROCEDURE PERFORMED: 1. An atherectomy of the left anterior descending artery using the CSI orbital atherectomy device. 2. Successful stenting of the mid LAD using 2.75 x 23 and 2.75 x 12 mm Promus Premier KIARA with a good angiographic result. INDICATION: This is a pleasant 52-year-old female patient who was experiencing chest discomfort and underwent a heart catheterization and that showed intermediate lesion involving the mid LAD. She underwent an FFR of that lesion and that came into be ischemic and she was brought today to undergo a PCI of the LAD. APPROACH: Right common femoral artery. COMPLICATION: None. LEVEL OF SEDATION: Moderate with sedation length of 80 minutes. PROCEDURE DESCRIPTION: After obtaining an informed consent, the patient was brought to the cardiac slab puller. The right common femoral artery was cannulated using micropuncture technique. The micropuncture wire passed easily then I placed a 6 Malawian sheath in the right common femoral artery. Subsequently, I did start anticoagulation using Angiomax. After that I did engage the left main using a JL4 guiding catheter. I did wire the LAD using a whisper wire. After that I did exchange my whisper wire into viper wire preparing for atherectomy. After that, I did atherectomize the mid LAD using the CSI orbital atherectomy device on low and high speeds, each time for 30 seconds. After that, I did balloon angioplasty using 2.5 x 12 mm balloon. The following angiogram showed what seems to be dissection in the mid LAD. I covered the dissection using 2.75 x 23 and 2.75 x 12 mm Promus Premier KIARA where the stent was positioned under fluoroscopic guidance and both were deployed under 10 atmospheres for 20 seconds. The following angiogram showed a good angiographic results. The procedure was complete without any complication. POSTPROCEDURE MANAGEMENT: 1. Dual antiplatelet therapy. 2. Risk factor modifications. 3. To follow up with the patient. JUAN
[2017-03-09] MEDS ORDERED: ATORVASTATIN 40 MG TAB PO SCH (21:00)
--- NOTE | 2017-03-12 10:26 | DS ---
ADMISSION DATE: 03/08/2017 DATE OF DISCHARGE: 03/09/2017 BRIEF HISTORY: This is a pleasant 52-year-old female patient who was admitted to the hospital yesterday and underwent an arthrectomy and stenting of the mid-left anterior descending artery with good angiographic results and without any complications. The procedure was performed from the right groin, which was soft and nontender and without any bruises. The patient is going to be discharged home on dual antiplatelet therapy. I will follow up with the patient as an outpatient. JUAN
== END 2017-03-09 12:25 | disposition home or self-care (01) ==
LOC: CATHCVL 07:30 → 6SEL 13:08 → CATHCVL 03-09 12:25
PROVIDERS: ATTEND Internal Medicine Interventional Cardiology
DX: I25.10 Atherosclerotic heart disease of native coronary artery without angina pectoris (principal); I10 Essential (primary) hypertension; F17.200 Nicotine dependence, unspecified, uncomplicated; E78.5 Hyperlipidemia, unspecified; Z82.49 Family history of ischemic heart disease and other diseases of the circulatory system; Z79.82 Long term (current) use of aspirin; Z79.52 Long term (current) use of systemic steroids; Z79.899 Other long term (current) drug therapy; Z88.1 Allergy status to other antibiotic agents; Z88.0 Allergy status to penicillin; Z88.2 Allergy status to sulfonamides; Z88.8 Allergy status to other drugs, medicaments and biological substances; Z91.09 Other allergy status, other than to drugs and biological substances
CPT/HCPCS: 80048 ×2; 85025; 99152; 99153 ×6; C9602; C1769 ×5; C1887; C1725 ×2; C1894; C1714; C1874; C1760; J2001; J2250; J1170; Q9967; J0583

== ENCOUNTER 2017-04-13 08:56 | Day surgery (SDC) | payer OTHER ==
[2017-04-11 13:57] VITALS: BMI 31.0
[~2017-04-13 08:56] MED LIST changes: +ATORVASTATIN 80 MG TAB PO STA; +NITROGLYCERIN SL TABS 0.4 MG TAB SUBLINGUAL PRN
--- NOTE | 2017-04-13 09:29 | XR ---
EXAMINATION TYPE: XR chest 1V DATE OF EXAM: 04/13/2017 COMPARISON: 12/17/2016 HISTORY: Precardiac catheter TECHNIQUE: Single frontal view of the chest is obtained. FINDINGS: There is no focal air space opacity, pleural effusion, or pneumothorax seen. The cardiac silhouette size is within normal limits. The osseous structures are intact. No overt failure. IMPRESSION: No acute process.
[2017-04-13 09:33] LABS: Glucose,Whole Blood 218 mg/dL (75-99)
[2017-04-13] MEDS ORDERED: INSULIN LISPRO (humaLOG) 300 UNIT/3 ML VIAL SQ ONE (09:33)
[2017-04-13 09:35] VITALS: TEMP 98.1
[2017-04-13 09:42] LABS: Basophils % (A) 0 %; CHCM 33.7; Eosinophils # (A) 0.1 k/uL (0-0.7); Eosinophils % (A) 1 %; HCT 35.6 % (34.0-46.0); HDW 3.18; HGB 12.3 gm/dL (11.4-16.0); Luc # (Auto) 0.09; Luc % (Auto) 1; Lymphocytes # (A) 1.2 k/uL (1.0-4.8); Lymphocytes % (A) 11 %; MCHC 34.6 g/dL (31.0-37.0); MCV 98.4 fL (80.0-100.0); Monocytes # (A) 0.2 k/uL (0-1.0); Monocytes % (A) 2 %; Neutrophils # (A) 8.8 k/uL (1.3-7.7); Neutrophils % (A) 85 %; RBC 3.62 m/uL (3.80-5.40); RDW 13.9 % (11.5-15.5); WBC 10.3 k/uL (3.8-10.6); WBC (Perox) 10.48
[2017-04-13 09:57] LABS: Anion Gap 12 mmol/L; Blood Urea Nitrogen 24 mg/dL (7-17); Calcium 9.1 mg/dL (8.4-10.2); Carbon Dioxide 23 mmol/L (22-30); Chloride 109 mmol/L (98-107); Glucose 208 mg/dL (74-99); Non-African American GFR(MDRD) 51 (>60 ml/min/1.73 sqM); Potassium 4.8 mmol/L (3.5-5.1); Sodium 144 mmol/L (137-145)
[2017-04-13] MEDS ORDERED: LIDOCAINE 2% INJ 20 MG/ML (20 ML MDV) ONE (10:42)
[2017-04-13] MEDS ORDERED: MIDAZOLAM 2 MG/2 ML VIAL ONE (10:42)
[2017-04-13] MEDS ORDERED: VERAPAMIL 2.5 MG/ML 2 ML AMP ONE (10:59)
[2017-04-13] MEDS ORDERED: MIDAZOLAM 2 MG/2 ML VIAL IV ONE (11:05)
[2017-04-13] MEDS ORDERED: LIDOCAINE 2% INJ 20 MG/ML SQ ONE (11:06)
[2017-04-13] MEDS ORDERED: HEPARIN SODIUM 1,000 UN/ML (10ML VL) ONE (11:06)
[2017-04-13] MEDS: VERAPAMIL SYRINGE (5 MG/10 ML) INTRAARTER ONE ×2 (11:14→11:27)
[2017-04-13] MEDS ORDERED: HEPARIN SODIUM 1,000 UN/ML (10ML VL) IV ONE (11:17)
[2017-04-13] MEDS ORDERED: IODIXANOL 320 MG/ML 100 ML INTRAARTER ONE (11:41)
[2017-04-13 14:27] VITALS: BP 133/71
[2017-04-13 15:32] VITALS: PULSE 64; RESP 18
--- NOTE | 2017-04-15 09:43 | CC ---
CARDIAC CATHETERIZATION REPORT Date of Service: DATE OF SERVICE: 04/14/2017 PERFORMING PHYSICIAN: Angelo Min MD, metal drilling machine operator. PROCEDURE PERFORMED: 1. Selective right and left coronary angiogram. 2. Left heart catheterization. 3. Left ventriculography. INDICATION: This is a pleasant 52-year-old, female patient who is known to have CAD and known to have chronic total occlusion of the RCA as well as stenting of the LAD performed after arterectomy recently, continues to have chest discomfort concerning for angina. APPROACH: Right radial artery. COMPLICATIONS: None. LEVEL OF SEDATION: Moderate with sedation less than 24 minutes. PROCEDURE DESCRIPTION: After obtaining informed consent, the patient was brought to cardiac clinical lab scientist. The right radial artery was cannulated using micropuncture technique and a micropuncture wire was passed easily. Then I placed a 6-Slovenian sheath in the right radial artery. Subsequently I gave the patient 2 mg of and 10,000 units of heparin IV. After that, I did selective right and left coronary angiogram using JR4 and JL3.5 catheters. After that I did left heart catheterization and subsequently left ventriculogram using a 6-Slovenian pigtail catheter. The procedure was completed without any complications. SELECTIVE CORONARY ANGIOGRAM: 1. Right coronary artery is a large caliber vessel. It is a dominant vessel. RCA is chronically occluded in the distal portion and fills by collaterals from the left coronary system. 2. The left main is angiographically normal. It bifurcates into the left circumflex and left anterior descending artery. 3. The left circumflex is a large caliber vessel and it is a nondominant vessel. The proximal left circumflex appears to have mild disease only and gives rise into a large obtuse marginal branch which seems to be angiographically normal. The left circumflex continues after that as a small-caliber vessel in the AV groove and gives rise into a second OM branch which is small caliber vessel. It seems to be angiographically normal. 4. The proximal LAD appears to be angiographically normal. The mid LAD is stented and the stent is patent. The LAD in the mid portion gives rise to small diagonal branch which bifurcates into 2 small branches and both are angiographically normal. The LAD distally appeared to be normal. HEMODYNAMICS: The left ventricular end-diastolic pressure was 20 mmHg and no gradient was identified across aortic valve. LEFT VENTRICULOGRAPHY: Left ventriculography was performed in the MOORE projection using a power injection. The left ventricular systolic function seems to be low normal with EF between 50% to 55% with inferobasal hypokinesia. CONCLUSION: 1. Chronic total occlusion of the right coronary artery which fills by collaterals from the left coronary system and that is known from before. 2. Normal left main coronary artery. 3. Mild disease involving the left circumflex coronary system. 4. Patent stent in the mid left anterior descending. 5. Elevated left ventricular end-diastolic pressure. 6. Normal left ventricular systolic function. POSTPROCEDURE MANAGEMENT: 1. Maximize medical treatment. 2. Follow up with the patient. 3. If the patient continues to have chest discomfort, I would consider proceeding with PCI of the WAITER/WAITRESS TAKE OUT of the right. MMODL / IJN: [id number] /
== END 2017-04-13 16:25 | disposition home or self-care (01) ==
LOC: CATHCVL 08:56
PROVIDERS: ATTEND Internal Medicine Interventional Cardiology
DX: I25.110 Atherosclerotic heart disease of native coronary artery with unstable angina pectoris (principal); I25.82 Chronic total occlusion of coronary artery; I10 Essential (primary) hypertension; Z95.5 Presence of coronary angioplasty implant and graft; Z87.891 Personal history of nicotine dependence; E78.5 Hyperlipidemia, unspecified; Z82.49 Family history of ischemic heart disease and other diseases of the circulatory system; E11.9 Type 2 diabetes mellitus without complications; Z79.82 Long term (current) use of aspirin; Z79.899 Other long term (current) drug therapy
CPT/HCPCS: 71010; 76937; 80048; 85025; 93458

== ENCOUNTER → 2017-08-31 | Outpatient (CLI) | payer OTHER ==
[2017-08-31 16:51] LABS: ALT 34 U/L (9-52); AST 21 U/L (14-36); Cholesterol 218 mg/dL (<200); HDL Cholesterol 40 mg/dL (40-60); LDL Cholesterol,Calculated 113 mg/dL (0-99); Triglycerides 327 mg/dL (<150)
== END | disposition home or self-care (01) ==
LOC: LABWHC1 15:42
PROVIDERS: ATTEND Internal Medicine Interventional Cardiology
DX: E78.2 Mixed hyperlipidemia (principal)
CPT/HCPCS: 36415; 80061; 84450; 84460

== ENCOUNTER → 2018-01-31 | Outpatient (CLI) | payer OTHER ==
--- NOTE | 2018-01-31 13:47 | MR ---
EXAMINATION TYPE: MR brain wo con DATE OF EXAM: 01/31/2018 COMPARISON: Prior MRI brain September 27, 2012 HISTORY: Migraines TECHNIQUE: Multiplanar, multisequence imaging of the brain and brainstem is performed without IV cont rast. FINDINGS: Diffusion weighted images demonstrate no evidence of a recent infarct or other diffusion abnormality. There is no extraaxial fluid collection or new significant white matter signal abnormality. There is single stable 3 mm T2 hyperintense focus right frontal lobe at level of montiel radiata axial image 18 . A few smaller T2 hyperintense foci superior to this are redemonstrated bilaterally. Less than 6 les ions are felt present. The ventricular system and cisternal spaces are normal in size and appearance. The brain volume is age appropriate. Midline structures demonstrate normal morphology. The craniocervical junction appears within normal limits. Normal vascular flow voids are present. Dominant left vertebral artery is redemonstrated. The visualized sinuses are clear on today's study and the globes are intact. Previously visualized suspe cted polyp in left frontal sinus is not clearly seen on current study. IMPRESSION: Stable minimal nonspecific white matter changes may be on basis of ischemic change relate d to product of migraine headaches.
== END | disposition home or self-care (01) ==
LOC: RADMRIMAIN 12:52
PROVIDERS: ATTEND Psychiatry & Neurology Neurology
DX: R90.89 Other abnormal findings on diagnostic imaging of central nervous system (principal)
CPT/HCPCS: 70551

== ENCOUNTER 2018-12-14 09:04 | Observation (INO) | payer OTHER ==
[2018-12-14] MEDS ORDERED: hydrALAZINE HCL 20 MG/ML 1 ML VIAL IVP STA (09:23)
--- NOTE | 2018-12-14 09:28 | ED ---
General Adult HPI - General Chief complaint: Arrhythmia/Palpitations Stated complaint: racing heart Source: patient, RN notes reviewed Mode of arrival: wheelchair Limitations: no limitations - History of Present Illness Initial comments: This a 53-year-old female presents emergency department with past history of a stent. Patient comes in complaining of palpitations at about 3:00 this morning. Patient states this started having chest pain and diaphoresis. Patient also short of breath at that time. Patient states she still having some chest pressure at this time but the palpitations have subsided and she is feeling little bit better. Patient denies any recent fever chills or cough per patient denies any abdominal pain patient denies nausea vomiting diarrhea. Patient denies any headache patient denies numbness weakness. Patient denies lightheadedness dizziness or near syncopal episode. - Related Data Home Medications Medication Instructions Recorded Confirmed Aspirin 81 mg PO DAILY 12/17/16 12/14/18 HYDROcodone/APAP 7.5-325MG [[place] 1 tab PO QID PRN 12/17/16 12/14/18 7.5-325] [place]-3 Fatty Acids [[place]-3] 1,000 mg PO DAILY 12/17/16 12/14/18 Orphenadrine [Norflex] 100 mg PO BID 12/17/16 12/14/18 PARoxetine HCL [Paxil] 20 mg PO DAILY 12/17/16 12/14/18 Pantoprazole [Protonix] 40 mg PO DAILY 12/17/16 12/14/18 Metoprolol Tartrate [Lopressor] 12.5 mg PO BID 02/14/17 12/14/18 Nitroglycerin Sl Tabs [Nitrostat] 0.4 mg SUBLINGUAL Q5M PRN 04/11/17 12/14/18 Atorvastatin [Lipitor] 40 mg PO DAILY 12/14/18 12/14/18 B Complex W-C No.20/Folic Acid 1 mg PO DAILY 12/14/18 12/14/18 [Renal Caps Softgel] Cholecalciferol (Vitamin D3) 2,000 unit PO DAILY 12/14/18 12/14/18 [Vitamin D3] Gabapentin [Neurontin] 100 mg PO TID 12/14/18 12/14/18 Isosorbide Mononitrate ER [Imdur] 30 mg PO DAILY 12/14/18 12/14/18 Losartan Potassium [Cozaar] 25 mg PO HS 12/14/18 12/14/18 Magnesium Oxide [Mag-Ox] 250 mg PO DAILY 12/14/18 12/14/18 Metoprolol Tartrate [Lopressor] 25 mg PO BID 12/14/18 12/14/18 Pioglitazone [Actos] 30 mg PO DAILY 12/14/18 12/14/18 Allergies Allergy/AdvReac Type Severity Reaction Status Date / Time cephalexin [From Keflex] Allergy Rash/Hives Verified 12/14/18 10:38 Iodinated Contrast- Oral and Allergy Unknown Verified 12/14/18 10:38 IV Dye [Iodinated Contrast Media - Oral and] iodine Allergy Unknown Verified 12/14/18 10:38 metronidazole [From Flagyl] Allergy Rash/Hives Verified 12/14/18 10:38 Penicillins Allergy Unknown Verified 12/14/18 10:38 rosuvastatin [From Crestor] Allergy Unknown Verified 12/14/18 10:38 sulfamethoxazole Allergy Rash/Hives Verified 12/14/18 10:38 [From Bactrim] trimethoprim [From Bactrim] Allergy Rash/Hives Verified 12/14/18 10:38 Review of Systems ROS Statement: Those systems with pertinent positive or pertinent negative responses have been documented in the HPI. ROS Other: All systems not noted in ROS Statement are negative. Past Medical History Past Medical History: Coronary Artery Disease (CAD), Chest Pain / Angina, GERD/Reflux, Hyperlipidemia, Osteoarthritis (OA), Renal Disease Additional Past Medical History / Comment(s): ."borderline" diabetic, past hx. 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 History of Any Multi-Drug Resistant Organisms: None Reported Past Surgical History: Section, Cholecystectomy, Heart Catheterization With Stent, Orthopedic Surgery Additional Past Surgical History / Comment(s): C/S x3, right knee replaced, Hemodialysis catheter inserted and removed. Past Anesthesia/Blood Transfusion Reactions: No Reported Reaction, Motion Sickness Date of Last Stent Placement:: 03/08/17 Past Psychological History: Anxiety, Depression Smoking Status: Former smoker Past Alcohol Use History: Occasional Past Drug Use History: None Reported - Past Family History Brother(s) Family Medical History: Cancer Mother Family Medical History: Cancer, Diabetes Mellitus, Renal Disease General Exam - General Exam Comments Initial Comments: GENERAL: Patient is well-developed and well-nourished. Patient is nontoxic and well- hydrated and is in mild distress. ENT: Neck is soft and supple. No significant lymphadenopathy is noted. Oropharynx is clear. Moist mucous membranes. Neck has full range of motion without eliciting any pain. EYES: The sclera were anicteric and conjunctiva were pink and moist. Extraocular movements were intact and pupils were equal round and reactive to light. Eyelids were unremarkable. PULMONARY: Unlabored respirations. Good breath sounds bilaterally. No audible rales rhonchi or wheezing was noted. CARDIOVASCULAR: There is a regular rate and rhythm without any murmurs gallops or rubs. ABDOMEN: Soft and nontender with normal bowel sounds. No palpable organomegaly was noted. There is no palpable pulsatile mass. SKIN: Skin is clear with no lesions or rashes and otherwise unremarkable. NEUROLOGIC: Patient is alert and oriented x3. Cranial nerves II through XII are grossly intact. Motor and sensory are also intact. Normal speech, volume and content. Symmetrical smile. MUSCULOSKELETAL: Normal extremities with adequate strength and full range of motion. No lower extremity swelling or edema. No calf tenderness. LYMPHATICS: No significant lymphadenopathy is noted PSYCHIATRIC: Normal psychiatric evaluation. Limitations: no limitations Course Vital Signs 12/14/18 12/14/18 12/14/18 09:06 10:00 11:00 Temperature 99.2 F Pulse Rate 82 Respiratory 18 Rate Blood Pressure 148/92 128/68 101/55 O2 Sat by Pulse 98 97 97 Oximetry Medical Decision Making - Medical Decision Making EKG shows normal sinus rhythm at 67 bpm IN interval is 166 QRS is 86 QT interval 400 QTC is 422. Chest x-ray shows no acute abnormality. Patient had no reoccurrence of any palpitations in the emergency department. Patient states the pressure has gone away while she sits here resting. I started the patient heparin because of the unstable angina. I gave the patient has been Nitropaste emergency department. I continue the heparin Nitropaste and aspirin on the floor. I spoke with some physicians agreed to admit the patient admitted the patient I wrote admit orders I consulted cardiology. - Lab Data Result diagrams: 12/14/18 09:46 12/14/18 09:46 Lab Results 12/14/18 12/14/18 12/14/18 Range/Units 09:46 09:46 09:46 WBC 4.4 (3.8-10.6) k/uL RBC 3.58 L (3.80-5.40) m/uL Hgb 12.0 (11.4-16.0) gm/dL Hct 36.0 (34.0-46.0) % MCV 100.6 H (80.0-100.0) fL MCH 33.5 (25.0-35.0) pg MCHC 33.2 (31.0-37.0) g/dL RDW 14.3 (11.5-15.5) % Plt Count 169 (150-450) k/uL Neutrophils % 66 % Lymphocytes % 25 % Monocytes % 4 % Eosinophils % 2 % Basophils % 0 % Neutrophils # 2.9 (1.3-7.7) k/uL Lymphocytes # 1.1 (1.0-4.8) k/uL Monocytes # 0.2 (0-1.0) k/uL Eosinophils # 0.1 (0-0.7) k/uL Basophils # 0.0 (0-0.2) k/uL Macrocytosis Slight PT 9.5 (9.0-12.0) sec INR 0.9 (<1.2) APTT 22.4 (22.0-30.0) sec Sodium 139 (137-145) mmol/L Potassium 5.0 (3.5-5.1) mmol/L Chloride 105 (98-107) mmol/L Carbon Dioxide 25 (22-30) mmol/L Anion Gap 9 mmol/L BUN 20 H (7-17) mg/dL Creatinine 0.84 (0.52-1.04) mg/dL Est GFR (CKD-EPI)AfAm >90 (>60 ml/min/1.73 sqM) Est GFR (CKD-EPI)NonAf 78 (>60 ml/min/1.73 sqM) Glucose 294 H (74-99) mg/dL Calcium 9.8 (8.4-10.2) mg/dL Magnesium 1.7 (1.6-2.3) mg/dL Total Bilirubin 0.6 (0.2-1.3) mg/dL AST 34 (14-36) U/L ALT 34 (9-52) U/L Alkaline Phosphatase 94 (38-126) U/L Troponin I (0.000-0.034) ng/mL Total Protein 7.4 (6.3-8.2) g/dL Albumin 4.1 (3.5-5.0) g/dL TSH 2.880 (0.465-4.680) mIU/L Free T4 0.84 (0.78-2.19) ng/dL 12/14/18 Range/Units 09:46 WBC (3.8-10.6) k/uL RBC (3.80-5.40) m/uL Hgb (11.4-16.0) gm/dL Hct (34.0-46.0) % MCV (80.0-100.0) fL MCH (25.0-35.0) pg MCHC (31.0-37.0) g/dL RDW (11.5-15.5) % Plt Count (150-450) k/uL Neutrophils % % Lymphocytes % % Monocytes % % Eosinophils % % Basophils % % Neutrophils # (1.3-7.7) k/uL Lymphocytes # (1.0-4.8) k/uL Monocytes # (0-1.0) k/uL Eosinophils # (0-0.7) k/uL Basophils # (0-0.2) k/uL Macrocytosis PT (9.0-12.0) sec INR (<1.2) APTT (22.0-30.0) sec Sodium (137-145) mmol/L Potassium (3.5-5.1) mmol/L Chloride (98-107) mmol/L Carbon Dioxide (22-30) mmol/L Anion Gap mmol/L BUN (7-17) mg/dL Creatinine (0.52-1.04) mg/dL Est GFR (CKD-EPI)AfAm (>60 ml/min/1.73 sqM) Est GFR (CKD-EPI)NonAf (>60 ml/min/1.73 sqM) Glucose (74-99) mg/dL Calcium (8.4-10.2) mg/dL Magnesium (1.6-2.3) mg/dL Total Bilirubin (0.2-1.3) mg/dL AST (14-36) U/L ALT (9-52) U/L Alkaline Phosphatase (38-126) U/L Troponin I <0.012 (0.000-0.034) ng/mL Total Protein (6.3-8.2) g/dL Albumin (3.5-5.0) g/dL TSH (0.465-4.680) mIU/L Free T4 (0.78-2.19) ng/dL Critical Care Time Critical Care Time: Yes Total Critical Care Time: 35 Disposition Clinical Impression: Palpitations, Unstable angina Disposition: ADMITTED IP TO THIS HOSP Referrals: Kal Park MD [Primary Care Provider] - 1-2 days Time of Disposition: 11:19
[2018-12-14 10:24] LABS: ALT 34 U/L (9-52); AST 34 U/L (14-36); Albumin 4.1 g/dL (3.5-5.0); Alkaline Phosphatase 94 U/L (38-126); Anion Gap 9 mmol/L; Blood Urea Nitrogen 20 mg/dL (7-17); Calcium 9.8 mg/dL (8.4-10.2); Carbon Dioxide 25 mmol/L (22-30); Chloride 105 mmol/L (98-107); Glucose 294 mg/dL (74-99); Magnesium 1.7 mg/dL (1.6-2.3); Sodium 139 mmol/L (137-145); Total Bilirubin 0.6 mg/dL (0.2-1.3); Total Protein 7.4 g/dL (6.3-8.2)
--- NOTE | 2018-12-14 10:26 | XR ---
EXAMINATION TYPE: XR chest 2V DATE OF EXAM: 12/14/2018 COMPARISON: Prior chest x-ray 04/13/2017 HISTORY: Dysrhythmia TECHNIQUE: Frontal and lateral views of the chest are obtained. FINDINGS: There is no focal air space opacity, pleural effusion, or pneumothorax seen. The cardiac silhouette size is within normal limits. The osseous structures are intact. IMPRESSION: No acute cardiopulmonary process.
[2018-12-14 10:29] LABS: INR 0.9 (<1.2); Partial Thromboplastin Time 22.4 sec (22.0-30.0); Prothrombin Time 9.5 sec (9.0-12.0)
[2018-12-14 10:41] LABS: T4, Free (Free Thyroxine) 0.84 ng/dL (0.78-2.19)
[2018-12-14 10:51] LABS: Basophils % (A) 0 %; Eosinophils # (A) 0.1 k/uL (0-0.7); Eosinophils % (A) 2 %; Lymphocytes # (A) 1.1 k/uL (1.0-4.8); Lymphocytes % (A) 25 %; MCH 33.5 pg (25.0-35.0); MCHC 33.2 g/dL (31.0-37.0); MCV 100.6 fL (80.0-100.0); Macrocytosis Slight; Mean Platelet Volume 8.1; Monocytes # (A) 0.2 k/uL (0-1.0); Monocytes % (A) 4 %; Neutrophils # (A) 2.9 k/uL (1.3-7.7); Neutrophils % (A) 66 %; Platelet Count 169 k/uL (150-450); RBC 3.58 m/uL (3.80-5.40); RDW 14.3 % (11.5-15.5); WBC 4.4 k/uL (3.8-10.6)
[2018-12-14] MEDS ORDERED: ASPIRIN 81 MG PO STA (11:17)
[2018-12-14] MEDS ORDERED: NITROGLYCERIN OINT 1 INCH/GM PACKET TOPICAL STA (11:17)
[2018-12-14] MEDS ORDERED: HEPARIN SODIUM,PORCINE 5,000 UNIT/ML 1 ML VIAL IV ONE (11:17)
[2018-12-14] MEDS ORDERED: NITROGLYCERIN SL TABS 0.4 MG TAB SUBLINGUAL PRN (11:19)
[2018-12-14] MEDS ORDERED: HEPARIN SOD,PORK IN 0.45% NACL 25,000 UNIT in 0.45% NACL 1 250ML.BAG IV SCH (11:30)
--- NOTE | 2018-12-14 11:47 | P.HPIM ---
History of Present Illness H&P Date: 12/14/18 The patient is a 53-year-old female with past medical history of CAD status post 1 stent (February 2017), diabetes mellitus, history of smoking, and hyperlipidemia presents to the ED with complaints of chest discomfort with shortness of breath. The patient reports that upon waking up this morning at 6 AM, she noticed being slightly short of breath. She then developed a right sided chest pain, with s udden onset at around 8 AM, with no alleviating or exacerbating features, nonexertional, 6 out of 10, nonradiating, pressure-like, constant, which occurred for roughly an hour and resolved spontaneously. At time of interview, the patient notes that she continues to have mild 2 out of 10 right-sided chest discomfort. The patient notes she's never had pain like this before and had associated palpitations, shortness of breath, some nausea, and diaphoresis. She otherwise denied cough, fever, chills, dysuria, or abdominal pain. Patient underwent an extensive evaluation in the ED with troponins less than 0.012, WBC 4.4, hemoglobin 12.0, sodium 139, potassium 5.0, and creatinine 0.84. Chest x- ray was unremarkable and EKG showed normal sinus rhythm at 67 bpm with no acute ST/T-wave changes noted. The patient was subsequently admitted to the medicine service under observation status for evaluation by cardiology. Review of Systems Pertinent positives and negatives as discussed in HPI, a complete review of systems was performed and all other systems are negative. Past Medical History Past Medical History: Coronary Artery Disease (CAD), Chest Pain / Angina, GERD/Reflux, Hyperlipidemia, Osteoarthritis (OA), Renal Disease Additional Past Medical History / Comment(s): ."borderline" diabetic, past hx. 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 History of Any Multi-Drug Resistant Organisms: None Reported Past Surgical History: Section, Cholecystectomy, Heart Catheterization With Stent, Orthopedic Surgery Additional Past Surgical History / Comment(s): C/S x3, right knee replaced, Hemodialysis catheter inserted and removed. Past Anesthesia/Blood Transfusion Reactions: No Reported Reaction, Motion Sickness Date of Last Stent Placement:: 03/08/17 Past Psychological History: Anxiety, Depression Smoking Status: Former smoker Past Alcohol Use History: Occasional Past Drug Use History: None Reported - Past Family History Brother(s) Family Medical History: Cancer Mother Family Medical History: Cancer, Diabetes Mellitus, Renal Disease Medications and Allergies Home Medications Medication Instructions Recorded Confirmed Type Aspirin 81 mg PO DAILY 12/17/16 12/14/18 History HYDROcodone/APAP 7.5-325MG [[place] 1 tab PO QID PRN 12/17/16 12/14/18 History 7.5-325] [place]-3 Fatty Acids [[place]-3] 1,000 mg PO DAILY 12/17/16 12/14/18 History Orphenadrine [Norflex] 100 mg PO BID 12/17/16 12/14/18 History PARoxetine HCL [Paxil] 20 mg PO DAILY 12/17/16 12/14/18 History Pantoprazole [Protonix] 40 mg PO DAILY 12/17/16 12/14/18 History Metoprolol Tartrate [Lopressor] 12.5 mg PO BID 02/14/17 12/14/18 History Nitroglycerin Sl Tabs [Nitrostat] 0.4 mg SUBLINGUAL Q5M PRN 04/11/17 12/14/18 History Atorvastatin [Lipitor] 40 mg PO DAILY 12/14/18 12/14/18 History B Complex W-C No.20/Folic Acid 1 mg PO DAILY 12/14/18 12/14/18 History [Renal Caps Softgel] Cholecalciferol (Vitamin D3) 2,000 unit PO DAILY 12/14/18 12/14/18 History [Vitamin D3] Gabapentin [Neurontin] 100 mg PO TID 12/14/18 12/14/18 History Isosorbide Mononitrate ER [Imdur] 30 mg PO DAILY 12/14/18 12/14/18 History Losartan Potassium [Cozaar] 25 mg PO HS 12/14/18 12/14/18 History Magnesium Oxide [Mag-Ox] 250 mg PO DAILY 12/14/18 12/14/18 History Metoprolol Tartrate [Lopressor] 25 mg PO BID 12/14/18 12/14/18 History Pioglitazone [Actos] 30 mg PO DAILY 12/14/18 12/14/18 History Allergies Allergy/AdvReac Type Severity Reaction Status Date / Time cephalexin [From Keflex] Allergy Rash/Hives Verified 12/14/18 10:38 Iodinated Contrast- Oral and Allergy Unknown Verified 12/14/18 10:38 IV Dye [Iodinated Contrast Media - Oral and] iodine Allergy Unknown Verified 12/14/18 10:38 metronidazole [From Flagyl] Allergy Rash/Hives Verified 12/14/18 10:38 Penicillins Allergy Unknown Verified 12/14/18 10:38 rosuvastatin [From Crestor] Allergy Unknown Verified 12/14/18 10:38 sulfamethoxazole Allergy Rash/Hives Verified 12/14/18 10:38 [From Bactrim] trimethoprim [From Bactrim] Allergy Rash/Hives Verified 12/14/18 10:38 Physical Exam Vitals: Vital Signs Temp Pulse Resp BP Pulse Ox 12/14/18 11:00 101/55 97 12/14/18 10:00 128/68 97 12/14/18 09:06 99.2 F 82 18 148/92 98 Intake and Output 12/13/18 12/14/18 12/14/18 22:59 06:59 14:59 Other: Weight 97.522 kg General: non toxic, no distress, appears at stated age, obese Derm: no unusual rashes/lesions no unusual ecchymoses, warm, dry Head: atraumatic, normocephalic, symmetric Eyes: EOMI, no lid lag, anicteric sclera, pupils equal round reactive to light ENT: Nose and ears atraumatic, no thrush, no pharyngeal erythema Neck: No thyromegaly, no cervical lymphadenopathy, trachea midline, supple Mouth: no lip lesion, mucus membranes moist Cardiovascular: S1S2 reg, no murmur, positive posterior tibial pulse bilateral, no edema, capillary refill less than 2 seconds Lungs: CTA bilateral, no rhonchi, no rales , no accessory muscle use Abdominal: soft, nontender to palpation, no guarding, no appreciable organomeg horacio, normal bowel sounds Ext: no gross muscle atrophy, muscle strength 5 out of 5 in all 4 extremities grossly, no contractures, Neuro: CN II-XI grossly intact, light touch intact all 4 extremities, finger to nose within normal limits, Psych: Alert, oriented, appropriate affect Results CBC & Chem 7: 12/14/18 09:46 12/14/18 09:46 Labs: Abnormal Lab Results - Last 24 Hours (Table) 12/14/18 12/14/18 Range/Units 09:46 09:46 RBC 3.58 L (3.80-5.40) m/uL MCV 100.6 H (80.0-100.0) fL BUN 20 H (7-17) mg/dL Glucose 294 H (74-99) mg/dL Assessment and Plan Plan: Chest pain, rule out ACS -Cardiac monitoring -Cardiology consult -Trend troponin and EKG -Continue with aspirin -Continue with nitro paste Diabetes mellitus -Lispro insulin sliding scale -Blood glucose monitoring Hypertension -Resume home meds DVT prophylaxis -Heparin The patient is admitted with an anticipated less than 2 midnight stay for evaluation of chest pain. CODE STATUS:Full Code Discussed with: Patient Anticipated discharge date: 12/15/[address]: Home A total of 35 minutes was spent on the care of this complex patient more than 50% of the time was spent in counseling and care coordination.
[2018-12-14 16:38] LABS: Glucose,Whole Blood 206 mg/dL (75-99)
[2018-12-14] MEDS ORDERED: ACETAMINOPHEN TAB 325 MG TAB PO PRN (16:45)
[2018-12-14] MEDS: NITROGLYCERIN OINT 1 INCH/GM PACKET TOPICAL SCH (16:52)
[2018-12-14] MEDS: HYDROcodone/APAP 7.5-325MG 1 EACH TAB PO PRN (16:58)
[2018-12-14] MEDS: CYCLOBENZAPRINE 10 MG TAB PO SCH (16:58)
[2018-12-14] MEDS: INSULIN ASPART (NovoLOG) 100 UNIT/ML VIAL SQ SCH ×2 (16:59→21:30)
[2018-12-14 20:55] LABS: Glucose,Whole Blood 155 mg/dL (75-99)
[2018-12-14] MEDS: GABAPENTIN 100 MG CAP PO SCH (21:29)
[2018-12-14] MEDS: METOPROLOL TARTRATE 25 MG TAB PO SCH (21:29)
[2018-12-15] MEDS: LOSARTAN 25 MG TAB PO SCH ×2 (00:11→20:10)
[2018-12-15 04:14] LABS: Cholesterol 291 mg/dL (<200); HDL Cholesterol 35 mg/dL (40-60)
[2018-12-15 04:34] LABS: Triglycerides 834 mg/dL (<150)
[2018-12-15] MEDS: NITROGLYCERIN OINT 1 INCH/GM PACKET TOPICAL SCH ×2 (05:20→05:53)
[2018-12-15 05:38] LABS: Glucose,Whole Blood 148 mg/dL (75-99)
[2018-12-15] MEDS: INSULIN ASPART (NovoLOG) 100 UNIT/ML VIAL SQ SCH ×4 (05:53→20:29)
[2018-12-15] MEDS ORDERED: AMINOPHYLLINE 500 MG/20 ML VIAL IV PRN (08:40)
[2018-12-15] MEDS: GABAPENTIN 100 MG CAP PO SCH ×3 (08:40→20:10)
[2018-12-15] MEDS: ISOSORBIDE MONONITRATE ER 30 MG TAB.ER.24H PO SCH (08:40)
[2018-12-15] MEDS: MAGNESIUM OXIDE 400 MG TAB PO SCH (08:40)
[2018-12-15] MEDS: METOPROLOL TARTRATE 25 MG TAB PO SCH ×2 (08:40→20:10)
[2018-12-15] MEDS: CYCLOBENZAPRINE 10 MG TAB PO SCH ×2 (08:40→20:10)
[2018-12-15] MEDS: PARoxetine 20 MG TAB PO SCH (08:40)
[2018-12-15] MEDS ORDERED: REGADENOSON 0.4 MG/5 ML SYRINGE IV ONE (08:40)
[2018-12-15] MEDS: ASPIRIN 325 MG TAB PO SCH (08:40)
[2018-12-15] MEDS ORDERED: CAFFEINE CITRATE 60 MG/3 ML VIAL IV PRN (08:40)
--- NOTE | 2018-12-15 08:40 | P.CRDCN ---
History of Present Illness Consult date: 12/15/18 Requesting physician: Evgeny Chavez Consult reason: chest pain Chief complaint: Chest pain History of present illness: This is a pleasant 53-year-old female who follows regularly with Dr. Patel in the office. 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 She presents to the hospital on this occasion with symptoms of chest discomfort, she states it felt like her heart was racing fast, and she had similar mild discomfort with this. According to the patient the symptoms lasted approximately 3 hours in duration before dissipating. Her EKG on presentation here showed a normal sinus rhythm with no acute changes. Troponins times 3 have been negative. White blood cell count is normal, hemoglobin 12, platelet count 169. Sodium 139, potassium 5.0, BUN 20 and creatinine 0.8. TSH level 2.8, cholesterol 291, triglycerides 834 and HDL 35. Chest x-ray did not reveal any acute cardiopulmonary process. Blood pressure this morning 110/50 with a heart rate in the 70s, 93% on room air. At the time of my examination this morning, the patient is currently chest pain-free. Past Medical History Past Medical History: Coronary Artery Disease (CAD), Chest Pain / Angina, Diabetes Mellitus, GERD/Reflux, Hyperlipidemia, Osteoarthritis (OA), Renal Disease Additional Past Medical History / Comment(s): TyII diabetic, past hx. renal failure in 2011 related to crestor per pt-was on dialysis for 3-4 months, bulging discs with back pain., chondromalacia of knees- right knee junior at times., migraines., History of Any Multi-Drug Resistant Organisms: None Reported Past Surgical History: Section, Cholecystectomy, Heart Catheterization With Stent, Orthopedic Surgery Additional Past Surgical History / Comment(s): C/S x3, right knee replaced, Hemo dialysis catheter inserted and removed. Past Anesthesia/Blood Transfusion Reactions: Motion Sickness Date of Last Stent Placement:: 03/08/17 Past Psychological History: Anxiety Smoking Status: Former smoker Past Alcohol Use History: Occasional Additional Past Alcohol Use History / Comment(s): quit smoking 2012, smoked 1ppd since teens before quitting Past Drug Use History: None Reported - Past Family History Brother(s) Family Medical History: Cancer Mother Family Medical History: Cancer, Diabetes Mellitus, Renal Disease Father Family Medical History: Coronary Artery Disease (CAD), Hyperlipidemia, Myoc ardial Infarction (ME) Additional Family Medical History / Comment(s): Father from [facility] Medications and Allergies Home Medications Medication Instructions Recorded Confirmed Type Aspirin 81 mg PO DAILY 12/17/16 12/14/18 History HYDROcodone/APAP 7.5-325MG [[place] 1 tab PO QID PRN 12/17/16 12/14/18 History 7.5-325] [place]-3 Fatty Acids [[place]-3] 1,000 mg PO DAILY 12/17/16 12/14/18 History Orphenadrine [Norflex] 100 mg PO BID 12/17/16 12/14/18 History PARoxetine HCL [Paxil] 20 mg PO DAILY 12/17/16 12/14/18 History Pantoprazole [Protonix] 40 mg PO DAILY 12/17/16 12/14/18 History Metoprolol Tartrate [Lopressor] 12.5 mg PO BID 02/14/17 12/14/18 History Nitroglycerin Sl Tabs [Nitrostat] 0.4 mg SUBLINGUAL Q5M PRN 04/11/17 12/14/18 History Atorvastatin [Lipitor] 40 mg PO DAILY 12/14/18 12/14/18 History B Complex W-C No.20/Folic Acid 1 mg PO DAILY 12/14/18 12/14/18 History [Renal Caps Softgel] Cholecalciferol (Vitamin D3) 2,000 unit PO DAILY 12/14/18 12/14/18 History [Vitamin D3] Gabapentin [Neurontin] 100 mg PO TID 12/14/18 12/14/18 History Isosorbide Mononitrate ER [Imdur] 30 mg PO DAILY 12/14/18 12/14/18 History Losartan Potassium [Cozaar] 25 mg PO HS 12/14/18 12/14/18 History Magnesium Oxide [Mag-Ox] 250 mg PO DAILY 12/14/18 12/14/18 History Metoprolol Tartrate [Lopressor] 25 mg PO BID 12/14/18 12/14/18 History Pioglitazone [Actos] 30 mg PO DAILY 12/14/18 12/14/18 History Allergies Allergy/AdvReac Type Severity Reaction Status Date / Time cephalexin [From Keflex] Allergy Rash/Hives Verified 12/14/18 10:38 Iodinated Contrast- Oral and Allergy Unknown Verified 12/14/18 10:38 IV Dye [Iodinated Contrast Media - Oral and] iodine Allergy Unknown Verified 12/14/18 10:38 metronidazole [From Flagyl] Allergy Rash/Hives Verified 12/14/18 10:38 Penicillins Allergy Unknown Verified 12/14/18 10:38 rosuvastatin [From Crestor] Allergy Unknown Verified 12/14/18 10:38 sulfamethoxazole Allergy Rash/Hives Verified 12/14/18 10:38 [From Bactrim] trimethoprim [From Bactrim] Allergy Rash/Hives Verified 12/14/18 10:38 Physical Exam Vitals: Vital Signs Temp Pulse Pulse Resp BP BP Pulse Ox 12/15/18 07:37 97.9 F 75 18 111/53 93 L 12/15/18 07:21 74 18 12/15/18 03:33 98.3 F 74 18 123/73 95 12/15/18 00:00 98.2 F 65 18 105/61 100 12/14/18 20:00 98.5 F 64 18 93/53 95 12/14/18 15:44 97.6 F 70 20 97/51 95 12/14/18 15:35 75 18 12/14/18 14:12 97.6 F 75 18 115/64 99 12/14/18 13:33 98 12/14/18 13:24 67 18 100/63 96 12/14/18 11:54 98 F 64 18 109/66 97 12/14/18 11:00 101/55 97 12/14/18 10:00 128/68 97 12/14/18 09:06 99.2 F 82 18 148/92 98 Intake and Output 12/14/18 12/15/18 12/15/18 22:59 06:59 14:59 Intake Total 309.139 Balance 309.139 Intake: Intake, IV Titration 69.139 Amount Heparin Sod,Pork in 0.45% 69.139 NaCl 25,000 unit In 0.45 % NaCl 1 250ml.bag @ 10. 25 UNITS/KG/HR 9.996 mls/ hr IV .Q24H [facility] Rx#: [id number] Oral 240 Other: Voiding Method Toilet Toilet Toilet # Voids 1 1 Weight 98.8 kg PHYSICAL EXAMINATION: GENERAL: 53-year-old female in no acute distress at the time of my examination HEENT: Head is atraumatic, normocephalic. Pupils equal, round. Sclera anicteric. Conjunctiva are clear. Mucous membranes of the mouth are moist. Neck is supple. There is no elevated jugular venous pressure. No carotid bruit is heard. HEART EXAMINATION: Heart S1, S2 normal. No murmur or gallop heard. CHEST EXAMINATION: Lungs are clear to auscultation and precussion. No chest wall tenderness is noted on palpation or with deep breathing. ABDOMEN: Soft, nontender. Bowel sounds are heard. No organomegaly noted. EXTREMITIES: 2+ peripheral pulses with no evidence of peripheral edema and no calf tenderness noted. NEUROLOGIC patient is awake, alert and oriented 3 . . Results 12/14/18 09:46 12/14/18 09:46 Cardiac Enzymes 12/14/18 12/14/18 12/14/18 Range/Units 09:46 09:46 17:27 AST 34 (14-36) U/L Troponin I <0.012 <0.012 (0.000-0.034) ng/mL 12/14/18 Range/Units 21:15 AST (14-36) U/L Troponin I <0.012 (0.000-0.034) ng/mL Coagulation 12/14/18 12/14/18 12/15/18 Range/Units 09:46 17:27 01:10 PT 9.5 (9.0-12.0) sec APTT 22.4 41.9 H 47.1 H (22.0-30.0) sec Lipids 12/14/18 Range/Units 09:46 Triglycerides 834 H (<150) mg/dL Cholesterol 291 H (<200) mg/dL HDL Cholesterol 35 L (40-60) mg/dL CBC 12/14/18 Range/Units 09:46 WBC 4.4 (3.8-10.6) k/uL RBC 3.58 L (3.80-5.40) m/uL Hgb 12.0 (11.4-16.0) gm/dL Hct 36.0 (34.0-46.0) % Plt Count 169 (150-450) k/uL Comprehensive Metabolic Panel 12/14/18 Range/Units 09:46 Sodium 139 (137-145) mmol/L Potassium 5.0 (3.5-5.1) mmol/L Chloride 105 (98-107) mmol/L Carbon Dioxide 25 (22-30) mmol/L BUN 20 H (7-17) mg/dL Creatinine 0.84 (0.52-1.04) mg/dL Glucose 294 H (74-99) mg/dL Calcium 9.8 (8.4-10.2) mg/dL AST 34 (14-36) U/L ALT 34 (9-52) U/L Alkaline Phosphatase 94 (38-126) U/L Total Protein 7.4 (6.3-8.2) g/dL Albumin 4.1 (3.5-5.0) g/dL Current Medications Generic Name Dose Route Start Last Admin Trade Name Freq PRN Reason Stop Dose Admin Acetaminophen 650 mg 12/14/18 16:45 Tylenol Tab PO Q6HR PRN Fever and/ or Pain Hydrocodone Bitart/Acetaminophen 1 each 12/14/18 16:44 12/14/18 16:58 [place] 7.5-325 PO 1 each QID PRN Administration Pain Aspirin 325 mg 12/15/18 09:00 Aspirin PO DAILY [facility] Atorvastatin Calcium 40 mg 12/15/18 09:00 Lipitor PO DAILY [facility] Cyclobenzaprine HCl 10 mg 12/14/18 21:00 12/14/18 16:58 Flexeril PO 10 mg BID DIANNA Administration Gabapentin 100 mg 12/14/18 22:00 12/14/18 21:29 Neurontin PO 100 mg TID DIANNA Administration Heparin Sodium/Sodium Chloride 250 mls @ 9.996 mls/hr 12/14/18 11:30 12/14/18 18:57 25,000 unit/ Sodium Chloride IV 12.25 units/kg/hr .Q24H DIANNA 11.946 mls/hr Titration Protocol 10.25 UNITS/KG/HR Insulin Aspart 0 unit 12/14/18 17:30 12/15/18 05:53 Novolog SQ 1 unit ACHS DIANNA Administration Protocol Isosorbide Mononitrate 30 mg 12/15/18 09:00 Imdur PO DAILY [facility] Losartan Potassium 25 mg 12/14/18 21:00 12/15/18 00:11 Cozaar PO 25 mg HS DIANNA Administration Magnesium Oxide 400 mg 12/15/18 09:00 Mag-Ox PO DAILY [facility] Metoprolol Tartrate 25 mg 12/14/18 21:00 12/14/18 21:29 Lopressor PO 25 mg BID DIANNA Administration Nitroglycerin 1 inch 12/14/18 18:00 12/15/18 05:53 Nitro-Bid Oint TOPICAL Not Given Q6HR [facility] Nitroglycerin 0.4 mg 12/14/18 11:19 Nitrostat SUBLINGUAL Q5M PRN Chest Pain Paroxetine HCl 20 mg 12/15/18 09:00 Paxil PO DAILY [facility] Intake and Output 12/14/18 12/15/18 12/15/18 22:59 06:59 14:59 Intake Total 309.139 Balance 309.139 Intake: Intake, IV Titration 69.139 Amount Heparin Sod,Pork in 0.45% 69.139 NaCl 25,000 unit In 0.45 % NaCl 1 250ml.bag @ 10. 25 UNITS/KG/HR 9.996 mls/ hr IV .Q24H [facility] Rx#: [id number] Oral 240 Other: Voiding Method Toilet Toilet Toilet # Voids 1 1 Weight 98.8 kg 12/14/18 09:46 12/14/18 09:46 EKG Interpretations (text) EKG shows normal sinus rhythm with no acute changes. Assessment and Plan Plan: Assessment and plan #1 chest discomfort with palpitations, atypical for acute coronary syndrome. T roponins negative 3. EKG shows normal sinus rhythm with no acute changes. 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 Patient is also been advi sed to undergo stress testing, further recommendations will be based on these findings and patient's clinical course. We will increase her Lipitor to 80 mg daily, discontinue the IV heparin. DNP note has been reviewed, I agree with a documented findings and plan of care. Patient was seen and examined.
[2018-12-15] MEDS ORDERED: ASPIRIN 81 MG PO SCH (09:00)
[2018-12-15] MEDS ORDERED: ATORVASTATIN 40 MG TAB PO SCH (09:00)
[2018-12-15] MEDS ORDERED: SODIUM CHLORIDE 0.9% IV ONE (09:30)
[2018-12-15] MEDS ORDERED: DIPYRIDAMOLE IV ONE (09:30)
[2018-12-15] MEDS ORDERED: AMINOPHYLLINE 250 MG/10 ML VIAL IV ONE (12:02)
--- NOTE | 2018-12-15 13:02 | EST ---
EXERCISE STRESS AGE: 53 SEX: F HT: 64" WT: 217 PROTOCOL: Persantine Cardiolite Stress Test HEART RATE REST: 72 BLOOD PRESSURE REST: 114/60 MAXIMUM HEART RATE ACHIEVED: 89 MAXIMUM BLOOD PRESSURE: 127/69 85% MPHR: 140 100% MPHR: 165 INDICATIONS: Chest pain, difficulty in breathing CLINICAL INFORMATION: Baseline EKG revealed normal sinus rhythm without significant ST-T changes. With Persantine administration, the patient did not have any significant ST-segment changes. Heart rate changed from 72 to 89 beats per minute, blood pressure changed to 114/60 to 127/69. No significant symptoms were reported. EKG was unremarkable. By EKG criteria this is an unremarkable Persantine stress test. The nuclear scan results which are more pertinent will be reported by the radiologist. MMHOLLIE / JUSTON: [id number] /
[2018-12-15 13:03] LABS: Glucose,Whole Blood 186 mg/dL (75-99)
--- NOTE | 2018-12-15 13:20 | NM ---
EXAMINATION TYPE: NM stress persantine cardiolit DATE OF EXAM: 12/15/2018 COMPARISON: NONE HISTORY: chest pain TECHNIQUE: After the intravenous administration of 10.1 mCi Tc 99m Sestamibi - Cardiolite resting SP ECT images acquired 50 minutes post injection. The patient received 57 mg Persantine, 25.6 mCi Tc 99m Sestamibi - Stress images obtained 40 minutes post injection FINDINGS: Artifact is present likely from gut activity. Review of stress and rest SPECT images demonstrates questionable decrease uptake along the septum tow ards the base of the heart on stress as compared to rest images. Gated analysis shows normal wall mo tion with an estimated left ventricular ejection fraction of 68 %. IMPRESSION: Question pharmacologically induced left ventricular myocardial ischemia as described, there is artifa ct. Consider echo correlation for elevated cardiac ejection fraction.
[2018-12-15] MEDS ORDERED: ALPRAZolam 0.25 MG TAB PO PRN (13:58)
[2018-12-15] MEDS ORDERED: ALPRAZolam 0.5 MG TAB PO PRN (13:58)
[2018-12-15] MEDS ORDERED: SODIUM CHLORIDE 0.9% 1,000 ML in EMPTY BAG 1 BAG IV ONE (13:58)
--- NOTE | 2018-12-15 14:03 | ECHOF ---
Referral Reason:chest pain MEASUREMENTS -------- HEIGHT: 162.6 cm WEIGHT: 98.4 kg BP: IVSd: 1.0 cm (0.6 - 1.1) LVIDd: 4.0 cm (3.9 - 5.3) LVPWd: 1.1 cm (0.6 - 1.1) IVSs: 1.7 cm LVIDs: 2.1 cm LVPWs: 1.7 cm Ao Diam: 2.6 cm (2.0 - 3.7) AV Cusp: 1.4 cm (1.5 - 2.6) LA Diam: 2.5 cm (2.7 - 3.8) MV EXCURSION: 13.189 mm (> 18.000) MV EF SLOPE: 94 mm/s (70 - 150) EPSS: 0.8 cm MV E Helder: 0.89 m/s MV DecT: 245 ms MV A Helder: 0.95 m/s MV E/A Ratio: 0.94 RAP: 5.00 mmHg RVSP: 11.51 mmHg FINDINGS -------- Sinus rhythm. This was a technically difficult study with suboptimal views. The left ventricular size is normal. Left ventricular wall thickness is normal. Overall left vent ricular systolic function is low-normal with, an EF between 50 - 55 %. The right ventricle is normal in size. The left atrial size is normal. The right atrial size is normal. Lumason used Interatrial and interventricular septum intact. The aortic valve was not well visualized. There is trace mitral regurgitation. Trace tricuspid regurgitation present. The right ventricular systolic pressure, as measured by Dopp ler, is 11.51mmHg. There is no pulmonic regurgitation present. The aortic root size is normal. IVC Not well visulized. There is no pericardial effusion. CONCLUSIONS -------- 1. Sinus rhythm. 2. This was a technically difficult study with suboptimal views. 3. The left ventricular size is normal. 4. Left ventricular wall thickness is normal. 5. Overall left ventricular systolic function is low-normal with, an EF between 50 - 55 %. 6. The right ventricle is normal in size. 7. The left atrial size is normal. 8. The right atrial size is normal. 9. Lumason used 10. Interatrial and interventricular septum intact. 11. The aortic valve was not well visualized. 12. There is trace mitral regurgitation. 13. Trace tricuspid regurgitation present. 14. The right ventricular systolic pressure, as measured by Doppler, is 11.51mmHg. 15. There is no pulmonic regurgitation present. 16. The aortic root size is normal. 17. IVC Not well visulized. 18. There is no pericardial effusion. FUEL SYSTEM MAINTENANCE WORKER: Ara Ramos RDCS
--- NOTE | 2018-12-15 15:31 | P.DS ---
Providers Date of admission: 12/14/18 11:19 Expected date of discharge: 12/15/18 Attending physician: Evgeny Chavez MD Consults: 12/14/18 11:19 Consult Physician Urgent Consulting Provider: [facility] Consult Reason/Comments: Unstable angina, palpitations Do you want consulting provider notified?: Yes Primary care physician: [place] Hospital Course: The patient is a 53-year-old female with past medical history of CAD status post 1 stent (February 2017), diabetes mellitus, history of smoking, and hyperlipidemia presented to the ED with complaints of chest discomfort with shortness of breath. The patient reported that upon waking up on the morning of presentation at 6 AM, she noticed being slightly short of breath. She then developed a right sided chest pain, with sudden onset at around 8 AM, with no alleviating or exacerbating features, nonexertional, 6 out of 10, nonradiating, pressure-like, constant, which occurred for roughly an hour and resolved spontaneously. Patient underwent an extensive evaluation in the ED with troponins less than 0.012, WBC 4.4, hemoglobin 12.0, sodium 139, potassium 5.0, and creatinine 0.84. Chest x- ray was unremarkable and EKG showed normal sinus rhythm at 67 bpm with no acute ST/T-wave changes noted. The patient was subsequently admitted to the medicine service under observation status for evaluation by cardiology. The patient's troponins were negative 3. The patient was evaluated by the cardiology service recommended a Persantine stress test which was unremarkable and revealed no evidence of ischemia. The patient also underwent an echocardiogram which revealed an LVEF of 50-55% and no significant valvular abnormality. Patient's Lipitor was increased to 80 mg daily and she was subsequently cleared for discharge. She is presently ready, stable, and agreeable for discharge to home. Physical Examination General: Non-toxic, in no acute distress, appears stated age, obese HEENT: NC/AT, anicteric sclerae, moist conjunctiva, no lid-lag, PERRLA Cardiovascular: S1/S2 wnl, no murmurs, rubs, or gallops Lungs: Clear to auscultation, normal respiratory effort, no accessory muscle use Abdominal: Soft, non-tender, non-distended, no guarding, rebound, or rigidity Skin: Warm, dry Extremities: No edema or contractures Psychiatric: Alert and oriented to person, place and time, appropriate affect Neuro: CN II-XII grossly intact, Strength 5/5 in all 4 extremities, Speech intact, Sensation to light touch grossly intact throughout Discharge diagnosis: Atypical chest pain, ACS ruled out; history of coronary artery disease; hypertension; hyperlipidemia; diabetes mellitus; previous nicotine dependence A total of 40 minutes of time were spent preparing this complex discharge summary. Patient Condition at Discharge: Good Plan - Discharge Summary Discharge Rx Participant: Yes New Discharge Prescriptions: New Atorvastatin [Lipitor] 80 mg PO DAILY #30 tab Continue [place]-3 Fatty Acids [[place]-3] 1,000 mg PO DAILY HYDROcodone/APAP 7.5-325MG [[place] 7.5-325] 1 tab PO QID PRN PRN Reason: Pain Aspirin 81 mg PO DAILY Orphenadrine [Norflex] 100 mg PO BID Pantoprazole [Protonix] 40 mg PO DAILY PARoxetine HCL [Paxil] 20 mg PO DAILY Nitroglycerin Sl Tabs [Nitrostat] 0.4 mg SUBLINGUAL Q5M PRN PRN Reason: Chest Pain Isosorbide Mononitrate ER [Imdur] 30 mg PO DAILY Cholecalciferol (Vitamin D3) [Vitamin D3] 2,000 unit PO DAILY B Complex W-C No.20/Folic Acid [Renal Caps Softgel] 1 mg PO DAILY Gabapentin [Neurontin] 100 mg PO TID Losartan Potassium [Cozaar] 25 mg PO HS Magnesium Oxide [Mag-Ox] 250 mg PO DAILY Metoprolol Tartrate [Lopressor] 25 mg PO BID Pioglitazone [Actos] 30 mg PO DAILY Discontinued Metoprolol Tartrate [Lopressor] 12.5 mg PO BID Atorvastatin [Lipitor] 40 mg PO DAILY Discharge Medication List Aspirin 81 mg PO DAILY 12/17/16 [History] HYDROcodone/APAP 7.5-325MG [[place] 7.5-325] 1 tab PO QID PRN 12/17/16 [History] [place]-3 Fatty Acids [[place]-3] 1,000 mg PO DAILY 12/17/16 [History] Orphenadrine [Norflex] 100 mg PO BID 12/17/16 [History] PARoxetine HCL [Paxil] 20 mg PO DAILY 12/17/16 [History] Pantoprazole [Protonix] 40 mg PO DAILY 12/17/16 [History] Nitroglycerin Sl Tabs [Nitrostat] 0.4 mg SUBLINGUAL Q5M PRN 04/11/17 [History] B Complex W-C No.20/Folic Acid [Renal Caps Softgel] 1 mg PO DAILY 12/14/18 [History] Cholecalciferol (Vitamin D3) [Vitamin D3] 2,000 unit PO DAILY 12/14/18 [History] Gabapentin [Neurontin] 100 mg PO TID 12/14/18 [History] Isosorbide Mononitrate ER [Imdur] 30 mg PO DAILY 12/14/18 [History] Losartan Potassium [Cozaar] 25 mg PO HS 12/14/18 [History] Magnesium Oxide [Mag-Ox] 250 mg PO DAILY 12/14/18 [History] Metoprolol Tartrate [Lopressor] 25 mg PO BID 12/14/18 [History] Pioglitazone [Actos] 30 mg PO DAILY 12/14/18 [History] Atorvastatin [Lipitor] 80 mg PO DAILY #30 tab 12/15/18 [Rx] Follow up Appointment(s)/Referral(s): Angelo Min MD [STAFF PHYSICIAN] - 01/01/19 11:15 am [facility] Park MD [Primary Care Provider] - 1-2 days Patient Instructions/Handouts: Chest Pain (DC) Discharge Disposition: HOME SELF-CARE
[2018-12-15 16:33] LABS: Glucose,Whole Blood 151 mg/dL (75-99)
[2018-12-15 20:22] LABS: Glucose,Whole Blood 178 mg/dL (75-99)
[2018-12-16 05:56] LABS: Glucose,Whole Blood 159 mg/dL (75-99)
[2018-12-16] MEDS: INSULIN ASPART (NovoLOG) 100 UNIT/ML VIAL SQ SCH ×3 (06:08→12:16)
--- NOTE | 2018-12-16 08:59 | P.PN ---
Subjective Progress Note Date: 12/16/18 Principal diagnosis: Chest pain This is a pleasant 53-year-old female patient following the office as an outpatient with known history of coronary artery disease and known chronic total occlusion of the RCA and stenting of the LAD AR diabetes, hypertension, dyslipidemia, presented to the hospital with chest discomfort and ruled out for acute coronary event. She underwent myocardial perfusion imaging stress test and that revealed an anterior ischemia. She scheduled to undergo a heart catheterization later on today. Currently she is chest pain-free. No arrhythmia was noted overnight. Objective - Vital Signs Vital signs: Vital Signs Temp 98.0 F 12/16/18 03:36 Pulse 77 12/16/18 03:37 Resp 16 12/16/18 03:37 BP 116/65 12/16/18 03:36 Pulse Ox 96 12/16/18 03:36 Intake & Output 12/15/18 12/16/18 12/16/18 18:59 06:59 18:59 Intake Total 358 150 Output Total 0 Balance 358 150 Weight 97.4 kg Intake: Intake, IV Titration 150 Amount Sodium Chloride 0.9% 1, 150 000 ml In Empty Bag 1 bag @ 1 ML/KG/HR 98.8 mls/hr IV .Q10H8[facility] Rx#: [id number] Oral 358 Output: Urine 0 Other: Voiding Method Toilet Toilet # Voids 1 - Constitutional General appearance: Present: no acute distress - Respiratory Respiratory: bilateral: CTA - Cardiovascular Rhythm: regular Heart sounds: normal: S1, S2 - Labs CBC & Chem 7: 12/14/18 09:46 12/14/18 09:46 Labs: Abnormal Lab Results - Last 24 Hours (Table) 12/15/18 12/15/18 12/15/18 Range/Units 12:52 16:32 20:21 POC Glucose (mg/dL) 186 H 151 H 178 H (75-99) mg/dL 12/16/18 Range/Units 05:54 POC Glucose (mg/dL) 159 H (75-99) mg/dL Assessment and Plan Assessment: Assessment #1 chest discomfort #2 known history of CAD and prior stenting #3 abnormal myocardial perfusion imaging stress test #4 multiple comorbid conditions including diabetes, hypertension, dyslipidemia Plan #1 continue the current medical regimen #2 the patient is scheduled to undergo coronary angiogram later on today We will continue following up with the patient
[2018-12-16] MEDS ORDERED: ASPIRIN 81 MG PO SCH (09:00)
[2018-12-16] MEDS ORDERED: ATORVASTATIN 80 MG TAB PO SCH (09:00)
[2018-12-16] MEDS: HYDROcodone/APAP 7.5-325MG 1 EACH TAB PO PRN (09:27)
[2018-12-16] MEDS: CYCLOBENZAPRINE 10 MG TAB PO SCH (09:27)
[2018-12-16] MEDS: ISOSORBIDE MONONITRATE ER 30 MG TAB.ER.24H PO SCH (09:27)
[2018-12-16] MEDS: PARoxetine 20 MG TAB PO SCH (09:27)
[2018-12-16] MEDS: GABAPENTIN 100 MG CAP PO SCH (09:27)
[2018-12-16] MEDS: MAGNESIUM OXIDE 400 MG TAB PO SCH (09:27)
[2018-12-16] MEDS: METOPROLOL TARTRATE 25 MG TAB PO SCH (09:28)
[2018-12-16 09:31] VITALS: PULSE 72; RESP 18; TEMP 97.9
[2018-12-16] MEDS ORDERED: LIDOCAINE 1% INJ 10MG/ML (20 ML MDV) ONE (10:57)
[2018-12-16] MEDS ORDERED: VERAPAMIL 2.5 MG/ML 2 ML AMP ONE (10:57)
[2018-12-16] MEDS ORDERED: HEPARIN SODIUM 1,000 UN/ML (10ML VL) ONE (10:57)
[2018-12-16] MEDS ORDERED: methylPREDNISolone SOD SUCCI 125 MG/2 ML VIAL ONE (11:01)
[2018-12-16] MEDS ORDERED: diphenhydrAMINE 50 MG/ML 1 ML VIAL ONE (11:01)
[2018-12-16] MEDS ORDERED: diphenhydrAMINE 50 MG/ML 1 ML VIAL IVP ONE (11:08)
[2018-12-16] MEDS ORDERED: IV FLUID CONTINUATION 150 ML IV ONE (11:08)
[2018-12-16] MEDS ORDERED: methylPREDNISolone SOD SUCCI 125 MG/2 ML VIAL IV ONE (11:08)
[2018-12-16] MEDS ORDERED: MIDAZOLAM (PF) 2 MG/2 ML VIAL IVP ONE (11:22)
[2018-12-16] MEDS ORDERED: LIDOCAINE 1% INJ 10MG/ML (20 ML MDV) SQ ONE (11:26)
[2018-12-16] MEDS ORDERED: VERAPAMIL SYRINGE (5 MG/10 ML) INTRAARTER ONE (11:29)
[2018-12-16] MEDS ORDERED: HEPARIN SODIUM 1,000 UN/ML (10ML VL) IV ONE (11:31)
[2018-12-16] MEDS ORDERED: SODIUM CHLORIDE 0.9% 1,000 ML IV ONE (11:31)
[2018-12-16] MEDS ORDERED: IOPAMIDOL-370 125ML BTL INJ ONE (11:35)
[2018-12-16] MEDS ORDERED: RX INFO: IV CONTRAST WAS GIVEN 1 EACH MISC MISCELLANE PRN (11:54)
[2018-12-16] MEDS ORDERED: SODIUM CHLORIDE 0.9% 1,000 ML IV SCH (12:00)
[2018-12-16 12:14] LABS: Glucose,Whole Blood 301 mg/dL (75-99)
--- NOTE | 2018-12-16 13:49 | P.DS ---
Providers Date of admission: 12/14/18 11:19 Expected date of discharge: 12/16/18 Attending physician: Evgeny Chavez MD Consults: 12/14/18 11:19 Consult Physician Urgent Consulting Provider: [facility] Consult Reason/Comments: Unstable angina, palpitations Do you want consulting provider notified?: Yes Primary care physician: Kal Park [facility] Course: The patient is a 53-year-old female with past medical history of CAD status post 1 stent (February 2017), diabetes mellitus, history of smoking, and hyperlipidemia who presented to the ED with complaints of chest discomfort with shortness of breath. The patient reported that upon waking up on the morning of presentation at 6 AM, she noticed being slightly short of breath. She then developed a right sided chest pain, with sudden onset at around 8 AM, with no alleviating or exacerbating features, nonexertional, 6 out of 10, nonradiating, pressure-like, constant, which occurred for roughly an hour and resolved spontaneously. Patient underwent an extensive evaluation in the ED with troponins less than 0.012, WBC 4.4, hemoglobin 12.0, sodium 139, potassium 5.0, and creatinine 0.84. Chest x- ray was unremarkable and EKG showed normal sinus rhythm at 67 bpm with no acute ST/T-wave changes noted. The patient was subsequently admitted to the medicine service under observation status for evaluation by cardiology. The patient's troponins were negative 3. The patient was evaluated by the cardiology service who recommended a Persantine stress test which revealed possible pharmacologically induced left ventricular myocardial ischemia. The patient also underwent an echocardiogram which revealed an LVEF of 50-55% and no significant valvular abnormality. The patient subsequently underwent a cardiac catheterization (via R radial approach) which revealed chronic total occlusion of the RCA (known finding), and a patent stent in the mid LAD. The patient was seen postoperatively. She was in good spirits and has been chest pain free. Denied any additional complaints including fever, cough, chills, nausea, or vomiting. She is ready and agreeable to discharge to home. Physical Examination General: Non-toxic, in no acute distress, appears stated age, normal weight HEENT: NC/AT, anicteric sclerae, moist conjunctiva, no lid-lag, PERRLA Cardiovascular: S1/S2 wnl, no murmurs, rubs, or gallops Lungs: Clear to auscultation, normal respiratory effort, no accessory muscle use Abdominal: Soft, non-tender, non-distended, no guarding, rebound, or rigidity Skin: Warm, dry Extremities: No edema or contractures Psychiatric: Alert and oriented to person, place and time, appropriate affect Neuro: CN II-XII grossly intact, Strength 5/5 in all 4 extremities, Speech intact, Sensation to light touch grossly intact throughout Discharge diagnosis:Chest pain, s/p cardiac catheterization, no intervention; Hx of CAD; HTN; HLD; Diabetes Mellitus; Obesity A total of 40 minutes of time were spent preparing this complex discharge summary. Patient Condition at Discharge: Good Plan - Discharge Summary Discharge Rx Participant: Yes New Discharge Prescriptions: New Atorvastatin [Lipitor] 80 mg PO DAILY #30 tab Continue [place]-3 Fatty Acids [[place]-3] 1,000 mg PO DAILY HYDROcodone/APAP 7.5-325MG [[place] 7.5-325] 1 tab PO QID PRN PRN Reason: Pain Aspirin 81 mg PO DAILY Orphenadrine [Norflex] 100 mg PO BID Pantoprazole [Protonix] 40 mg PO DAILY PARoxetine HCL [Paxil] 20 mg PO DAILY Nitroglycerin Sl Tabs [Nitrostat] 0.4 mg SUBLINGUAL Q5M PRN PRN Reason: Chest Pain Isosorbide Mononitrate ER [Imdur] 30 mg PO DAILY Cholecalciferol (Vitamin D3) [Vitamin D3] 2,000 unit PO DAILY B Complex W-C No.20/Folic Acid [Renal Caps Softgel] 1 mg PO DAILY Gabapentin [Neurontin] 100 mg PO TID Losartan Potassium [Cozaar] 25 mg PO HS Magnesium Oxide [Mag-Ox] 250 mg PO DAILY Metoprolol Tartrate [Lopressor] 25 mg PO BID Pioglitazone [Actos] 30 mg PO DAILY Discontinued Metoprolol Tartrate [Lopressor] 12.5 mg PO BID Atorvastatin [Lipitor] 40 mg PO DAILY Discharge Medication List Aspirin 81 mg PO DAILY 12/17/16 [History] HYDROcodone/APAP 7.5-325MG [[place] 7.5-325] 1 tab PO QID PRN 12/17/16 [History] [place]-3 Fatty Acids [[place]-3] 1,000 mg PO DAILY 12/17/16 [History] Orphenadrine [Norflex] 100 mg PO BID 12/17/16 [History] PARoxetine HCL [Paxil] 20 mg PO DAILY 12/17/16 [History] Pantoprazole [Protonix] 40 mg PO DAILY 12/17/16 [History] Nitroglycerin Sl Tabs [Nitrostat] 0.4 mg SUBLINGUAL Q5M PRN 04/11/17 [History] B Complex W-C No.20/Folic Acid [Renal Caps Softgel] 1 mg PO DAILY 12/14/18 [History] Cholecalciferol (Vitamin D3) [Vitamin D3] 2,000 unit PO DAILY 12/14/18 [History] Gabapentin [Neurontin] 100 mg PO TID 12/14/18 [History] Isosorbide Mononitrate ER [Imdur] 30 mg PO DAILY 12/14/18 [History] Losartan Potassium [Cozaar] 25 mg PO HS 12/14/18 [History] Magnesium Oxide [Mag-Ox] 250 mg PO DAILY 12/14/18 [History] Metoprolol Tartrate [Lopressor] 25 mg PO BID 12/14/18 [History] Pioglitazone [Actos] 30 mg PO DAILY 12/14/18 [History] Atorvastatin [Lipitor] 80 mg PO DAILY #30 tab 12/15/18 [Rx] Follow up Appointment(s)/Referral(s): Angelo Min MD [STAFF PHYSICIAN] - 01/01/19 11:15 am Kal Park MD [Primary Care Provider] - 1-2 days (Please call and make follow up appointment during normal business hours. ) Patient Instructions/Handouts: Cholesterol and Your Health (GEN), Heart Catheterization (DC), Nuclear Stress Test (DC) Activity/Diet/Wound Care/Special Instructions: It is normal for the catheter insertion site to be black and blue for a couple of days. The site may also be slightly swollen and pink, and there may be a small lump (about the size of a quarter) at the site. Wash the catheter insertion site at least once daily with soap and water. Place soapy water on your hand or washcloth and gently wash the insertion site; do not rub. Keep the area clean and dry when you are not showering. Do not use creams, lotions or ointment on the wound site. Do not take a bath, tub soak, go in a Jacuzzi, or swim in a pool or lindsey for one week after the procedure. Do not participate in strenuous activities for 2 days after the procedure. This includes most sports - jogging, golfing, play tennis, and bowling. Gradually increase your activities until you reach your normal activity level within two days after the procedure. Do not lift more then 5lbs or a gallon of milk until follow up appointment or directed by your doctor. Discharge Disposition: HOME SELF-CARE
[2018-12-16 16:44] LABS: Glucose,Whole Blood 326 mg/dL (75-99)
[2018-12-16 17:46] VITALS: BP 131/68
--- NOTE | 2018-12-16 17:47 | CC ---
CARDIAC CATHETERIZATION REPORT DATE OF SERVICE: 12/16/2018 PERFORMING PHYSICIAN: Angelo Min MD, residence counselor. PROCEDURE PERFORMED: 1. Selective right and left coronary angiogram. 2. Left heart catheterization. INDICATION: This is a pleasant 53-year-old female patient with known history of coronary artery disease and prior stenting of the LAD as well as diabetes, hypertension, and dyslipidemia, who presented to the hospital with chest discomfort and ruled out for acute coronary event. She underwent a myocardial perfusion imaging stress test and that revealed apical ischemia. Because of that, a heart catheterization was advised. APPROACH: Right radial artery. COMPLICATION: None. LEVEL OF SEDATION: Moderate with sedation length of 15 minutes. PROCEDURE DESCRIPTION: After obtaining an informed consent, the patient was brought to cardiac field laborer. The right radial artery was cannulated using micropuncture technique, the micropuncture wire passed easily then I placed a 6-Turkish sheath in the right radial artery. After that I gave the patient 2 mg of verapamil IA and 10,000 units of heparin IV. Selective right and left coronary angiogram performed using JR4 and JL3.5 catheter and left heart catheterization was performed using 5-Turkish pigtail catheter. The procedure was completed without any complication. SELECTIVE CORONARY ANGIOGRAM: 1. The right coronary artery is a large caliber vessel and it is a dominant vessel. The RCA is chronically occluded in the distal portion. Before that it is diffusely diseased. 2. The left main is angiographically normal. It bifurcates into left circumflex and left anterior descending artery. 3. The left circumflex is a large caliber vessel. It is a nondominant vessel. The left circumflex is angiographically normal. It gives rise into 2 obtuse marginal branches and both appeared to be angiographically normal. The circumflex continues after that as a small-caliber vessel in the AV groove. 4. The LAD proximally appeared to be angiographically normal. The mid LAD is stented and the stent is patent. The LAD distally appeared to be angiographically normal. The LAD gives rise into a diagonal branch which is small caliber vessel, seems to be angiographically normal. HEMODYNAMICS: The left ventricular end-diastolic pressure was 20 mmHg without significant gradient across the aortic valve. CONCLUSION: 1. Chronic total occlusion of the right coronary artery which is a known finding. 2. Patent stent in the mid left anterior descending artery. 3. Elevated left ventricular end-diastolic pressure. POSTPROCEDURE MANAGEMENT: 1. From the cardiovascular standpoint of view the patient can be discharged home. 2. Continue the current medical regimen. 3. Aggressive cholesterol control. 4. Follow up with the patient as an outpatient. HARRISON / SATISH: [id number] /
== END 2018-12-16 17:47 | disposition home or self-care (01) ==
LOC: EC 09:04 → 1SOBS 11:19 → 3SCARD 12:34
PROVIDERS: ADMIT Family Medicine; ATTEND Family Medicine
DX: R07.89 Other chest pain (principal); I25.10 Atherosclerotic heart disease of native coronary artery without angina pectoris; R06.02 Shortness of breath; R61 Generalized hyperhidrosis; R00.2 Palpitations; R00.0 Tachycardia, unspecified; E11.9 Type 2 diabetes mellitus without complications; E78.5 Hyperlipidemia, unspecified; I25.82 Chronic total occlusion of coronary artery; I10 Essential (primary) hypertension; E66.9 Obesity, unspecified; Z68.36 Body mass index [BMI] 36.0-36.9, adult; K21.9 Gastro-esophageal reflux disease without esophagitis; M19.90 Unspecified osteoarthritis, unspecified site; M54.9 Dorsalgia, unspecified; Z95.5 Presence of coronary angioplasty implant and graft; Z87.891 Personal history of nicotine dependence; I25.2 Old myocardial infarction; M94.262 Chondromalacia, left knee; M94.261 Chondromalacia, right knee; G43.909 Migraine, unspecified, not intractable, without status migrainosus; F41.9 Anxiety disorder, unspecified; F32.9 Major depressive disorder, single episode, unspecified; Z91.048 Other nonmedicinal substance allergy status; Z91.041 Radiographic dye allergy status; Z88.1 Allergy status to other antibiotic agents; Z88.0 Allergy status to penicillin; Z88.2 Allergy status to sulfonamides; Z88.8 Allergy status to other drugs, medicaments and biological substances; Z79.899 Other long term (current) drug therapy; Z79.82 Long term (current) use of aspirin; Z79.84 Long term (current) use of oral hypoglycemic drugs; Z79.891 Long term (current) use of opiate analgesic; Z90.49 Acquired absence of other specified parts of digestive tract; Z80.9 Family history of malignant neoplasm, unspecified; Z84.1 Family history of disorders of kidney and ureter
CPT/HCPCS: 96361 ×2; 96366 ×3; 96376; 96365; 99291; 36415; 93005; 93017; 93458; 84439; 80061; 80053; 83735; 84443; 84484; 85025; 85610; 85730 ×3; 71046; 78452; G0378 ×4; C8929; C1769; C1894; A9500; J1200; J1644 ×3; J2930; J2001; J0280; Q9950; Q9967; J2250; 93306

== ENCOUNTER 2020-04-11 12:24 | Emergency (ER) | payer OTHER ==
[2020-04-11] MEDS ORDERED: ONDANSETRON 4 MG/2 ML VIAL IVP STA (12:43)
[2020-04-11] MEDS ORDERED: MORPHINE SULFATE 4 MG/ML SYRINGE IV STA (12:43)
[2020-04-11] MEDS ORDERED: SODIUM CHLORIDE 0.9% 1,000 ML IV STA (12:43)
--- NOTE | 2020-04-11 13:30 | ED ---
Abdominal Pain HPI - General Chief Complaint: Abdominal Pain Stated Complaint: Enlarged Liver, SOB Time Seen by Provider: 04/11/20 12:37 Source: patient, RN notes reviewed Mode of arrival: wheelchair Limitations: no limitations - History of Present Illness Initial Comments: This a 35-year-old female presents to the emergency Department chief complaint o f abdominal pain. Patient states she's been having worsening abdominal pain last month. Patient states she had an ultrasound showed a large spleen and liver. Patient was referred to GI but states not until April. She states the pain has been worsening called office recommended come emergency department. She states her pain is primarily in her lower abdomen but still has her upper abdominal pain. No chest pain currently. Denies any dysuria she does admit that she still she's had a fever. Patient denies any significant change in bowel habits. No headache or dizziness. - Related Data Home Medications Medication Instructions Recorded Confirmed Aspirin 81 mg PO DAILY 12/17/16 04/11/20 HYDROcodone/APAP 7.5-325MG [[place] 1 tab PO QID PRN 12/17/16 04/11/20 7.5-325] Orphenadrine [Norflex] 100 mg PO BID PRN 12/17/16 04/11/20 PARoxetine HCL [Paxil] 20 mg PO DAILY 12/17/16 04/11/20 Pantoprazole [Protonix] 40 mg PO DAILY 12/17/16 04/11/20 Nitroglycerin Sl Tabs [Nitrostat] 0.4 mg SUBLINGUAL Q5M PRN 04/11/17 04/11/20 Gabapentin [Neurontin] 100 mg PO TID 12/14/18 04/11/20 Isosorbide Mononitrate ER [Imdur] 30 mg PO DAILY 12/14/18 04/11/20 Losartan Potassium [Cozaar] 25 mg PO HS 12/14/18 04/11/20 Metoprolol Tartrate [Lopressor] 12.5 mg PO BID 12/14/18 04/11/20 Atorvastatin [Lipitor] 80 mg PO HS 04/11/20 04/11/20 Cholecalciferol [Vitamin D3 (25 1,000 unit PO DAILY 04/11/20 04/11/20 Mcg = 1000 Iu)] Divalproex Sodium [Depakote] 125 mg PO BID 04/11/20 04/11/20 Magnesium Oxide [[place]] 1,000 mg PO HS 04/11/20 04/11/20 Magnesium Oxide [[place]] 2,000 mg PO QAM 04/11/20 04/11/20 Pioglitazone [Actos] 45 mg PO DAILY 04/11/20 04/11/20 Previous Rx's Medication Instructions Recorded Nitrofurantoin Monohyd/M-Cryst 100 mg PO Q12HR #14 cap 04/11/20 [Macrobid] Allergies Allergy/AdvReac Type Severity Reaction Status Date / Time cephalexin [From Keflex] Allergy Rash/Hives Verified 04/11/20 12:30 Iodinated Contrast Media Allergy Unknown Verified 04/11/20 12:30 [Iodinated Contrast Media - Oral and] iodine Allergy Unknown Verified 04/11/20 12:30 metronidazole [From Flagyl] Allergy Rash/Hives Verified 04/11/20 12:30 Penicillins Allergy Unknown Verified 04/11/20 12:30 rosuvastatin [From Crestor] Allergy Unknown Verified 04/11/20 12:30 sulfamethoxazole Allergy Rash/Hives Verified 04/11/20 12:30 [From Bactrim] trimethoprim [From Bactrim] Allergy Rash/Hives Verified 04/11/20 12:30 Review of Systems ROS Statement: Those systems with pertinent positive or pertinent negative responses have been documented in the HPI. ROS Other: All systems not noted in ROS Statement are negative. Past Medical History Past Medical History: Coronary Artery Disease (CAD), Chest Pain / Angina, Diabetes Mellitus, GERD/Reflux, Hyperlipidemia, Osteoarthritis (OA), Renal Disease Additional Past Medical History / Comment(s): TyII diabetic, past hx. 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 Past Anesthesia/Blood Transfusion Reactions: Motion Sickness Date of Last Stent Placement:: 03/08/17 Past Psychological History: Anxiety Smoking Status: Former smoker Past Alcohol Use History: None Reported Past Drug Use History: None Reported - Past Family History Brother(s) Family Medical History: Cancer Mother Family Medical History: Cancer, Diabetes Mellitus, Renal Disease Father Family Medical History: Coronary Artery Disease (CAD), Hyperlipidemia, Myocardial Infarction ([place]) Additional Family Medical History / Comment(s): Father from AAA General Exam Limitations: no limitations General appearance: alert, in no apparent distress Head exam: Present: atraumatic, normocephalic, normal inspection Eye exam: Present: normal appearance, PERRL, EOMI. Absent: scleral icterus, conjunctival injection, periorbital swelling Respiratory exam: Present: normal lung sounds bilaterally. Absent: respiratory distress, wheezes, rales, rhonchi, stridor Cardiovascular Exam: Present: regular rate, normal rhythm, normal heart sounds. Absent: systolic murmur, diastolic murmur, rubs, gallop, clicks GI/Abdominal exam: Present: soft, tenderness, normal bowel sounds. Absent: distended, guarding, rebound, rigid Back exam: Absent: CVA tenderness (R), CVA tenderness (L) Course Vital Signs 04/11/20 04/11/20 12:26 14:15 Temperature 99.4 F Pulse Rate 77 67 Respiratory 18 16 Rate Blood Pressure 148/81 101/78 O2 Sat by Pulse 96 94 L Oximetry Medical Decision Making - Medical Decision Making Labs, CT were reviewed CT does not reveal any specific findings. Urinalysis reveals evidence of slight contamination possible urinary tract infection as she is symptomatic. Patient did have mild lactic acidosis related dehydration. Patient was hydrated, given oral antibiotics with close follow-up. Return parameters discussed. - Lab Data Result diagrams: 04/11/20 13:38 04/11/20 13:38 Lab Results 04/11/20 04/11/20 04/11/20 Range/Units 13:38 13:38 13:38 WBC 7.1 (3.8-10.6) k/uL RBC 3.75 L (3.80-5.40) m/uL Hgb 12.1 (11.4-16.0) gm/dL Hct 37.4 (34.0-46.0) % MCV 99.6 (80.0-100.0) fL MCH 32.1 (25.0-35.0) pg MCHC 32.2 (31.0-37.0) g/dL RDW 14.4 (11.5-15.5) % Plt Count 226 (150-450) k/uL Neutrophils % 73 % Lymphocytes % 20 % Monocytes % 4 % Eosinophils % 2 % Basophils % 0 % Neutrophils # 5.1 (1.3-7.7) k/uL Lymphocytes # 1.4 (1.0-4.8) k/uL Monocytes # 0.3 (0-1.0) k/uL Eosinophils # 0.2 (0-0.7) k/uL Basophils # 0.0 (0-0.2) k/uL Macrocytosis Slight Sodium 136 L (137-145) mmol/L Potassium 4.8 (3.5-5.1) mmol/L Chloride 97 L (98-107) mmol/L Carbon Dioxide 29 (22-30) mmol/L Anion Gap 10 mmol/L BUN 16 (7-17) mg/dL Creatinine 0.86 (0.52-1.04) mg/dL Est GFR (CKD-EPI)AfAm 87 (>60 ml/min/1.73 sqM) Est GFR (CKD-EPI)NonAf 76 (>60 ml/min/1.73 sqM) Glucose 217 H (74-99) mg/dL Plasma Lactic Acid [place] (0.7-2.0) mmol/L Calcium 10.2 (8.4-10.2) mg/dL Total Bilirubin 0.5 (0.2-1.3) mg/dL AST 27 (14-36) U/L ALT 19 (4-34) U/L Alkaline Phosphatase 120 (38-126) U/L Total Protein 7.5 (6.3-8.2) g/dL Albumin 4.2 (3.5-5.0) g/dL Amylase 41 (30-110) U/L Lipase 105 (23-300) U/L Urine Color Yellow Urine Appearance Cloudy H (Clear) Urine pH 6.0 (5.0-8.0) Ur Specific [place] 1.026 (1.001-1.035) Urine Protein 1+ H (Negative) Urine Glucose (UA) Negative (Negative) Urine Ketones Trace H (Negative) Urine Blood Negative (Negative) Urine Nitrite Negative (Negative) Urine Bilirubin Negative (Negative) Urine Urobilinogen 2.0 (<2.0) mg/dL Ur Leukocyte Esterase Moderate H (Negative) Urine RBC 4 (0-5) /hpf Urine WBC 17 H (0-5) /hpf Ur Squamous Epith Cells 25 H (0-4) /hpf Urine Bacteria Occasional H (None) /hpf Hyaline Casts 7 H (0-2) /lpf Urine Mucus Occasional H (None) /hpf 04/11/20 Range/Units 13:38 WBC (3.8-10.6) k/uL RBC (3.80-5.40) m/uL Hgb (11.4-16.0) gm/dL Hct (34.0-46.0) % MCV (80.0-100.0) fL MCH (25.0-35.0) pg MCHC (31.0-37.0) g/dL RDW (11.5-15.5) % Plt Count (150-450) k/uL Neutrophils % % Lymphocytes % % Monocytes % % Eosinophils % % Basophils % % Neutrophils # (1.3-7.7) k/uL Lymphocytes # (1.0-4.8) k/uL Monocytes # (0-1.0) k/uL Eosinophils # (0-0.7) k/uL Basophils # (0-0.2) k/uL Macrocytosis Sodium (137-145) mmol/L Potassium (3.5-5.1) mmol/L Chloride (98-107) mmol/L Carbon Dioxide (22-30) mmol/L Anion Gap mmol/L BUN (7-17) mg/dL Creatinine (0.52-1.04) mg/dL Est GFR (CKD-EPI)AfAm (>60 ml/min/1.73 sqM) Est GFR (CKD-EPI)NonAf (>60 ml/min/1.73 sqM) Glucose (74-99) mg/dL Plasma Lactic Acid [place] 3.1 H* (0.7-2.0) mmol/L Calcium (8.4-10.2) mg/dL Total Bilirubin (0.2-1.3) mg/dL AST (14-36) U/L ALT (4-34) U/L Alkaline Phosphatase (38-126) U/L Total Protein (6.3-8.2) g/dL Albumin (3.5-5.0) g/dL Amylase (30-110) U/L Lipase (23-300) U/L Urine Color Urine Appearance (Clear) Urine pH (5.0-8.0) Ur Specific [place] (1.001-1.035) Urine Protein (Negative) Urine Glucose (UA) (Negative) Urine Ketones (Negative) Urine Blood (Negative) Urine Nitrite (Negative) Urine Bilirubin (Negative) Urine Urobilinogen (<2.0) mg/dL Ur Leukocyte Esterase (Negative) Urine RBC (0-5) /hpf Urine WBC (0-5) /hpf Ur Squamous Epith Cells (0-4) /hpf Urine Bacteria (None) /hpf Hyaline Casts (0-2) /lpf Urine Mucus (None) /hpf Disposition Clinical Impression: Abdominal pain, UTI (urinary tract infection) Disposition: HOME SELF-CARE Condition: Stable Instructions (If sedation given, give patient instructions): Abdominal Pain (ED) Additional Instructions: Please return to the Emergency Department if symptoms worsen or any other concerns. Prescriptions: Nitrofurantoin Monohyd/M-Cryst [Macrobid] 100 mg PO Q12HR #14 cap Is patient prescribed a controlled substance at d/c from ED?: No Referrals: Kal Park MD [Primary Care Provider] - 1-2 days Time of Disposition: 15:10
[2020-04-11 14:04] LABS: Basophils % (A) 0 %; Eosinophils # (A) 0.2 k/uL (0-0.7); Eosinophils % (A) 2 %; HCT 37.4 % (34.0-46.0); HGB 12.1 gm/dL (11.4-16.0); Lymphocytes # (A) 1.4 k/uL (1.0-4.8); Lymphocytes % (A) 20 %; MCH 32.1 pg (25.0-35.0); MCHC 32.2 g/dL (31.0-37.0); MCV 99.6 fL (80.0-100.0); Macrocytosis Slight; Mean Platelet Volume 7.7; Monocytes # (A) 0.3 k/uL (0-1.0); Monocytes % (A) 4 %; Neutrophils # (A) 5.1 k/uL (1.3-7.7); Neutrophils % (A) 73 %; Platelet Count 226 k/uL (150-450); RBC 3.75 m/uL (3.80-5.40); RDW 14.4 % (11.5-15.5); WBC 7.1 k/uL (3.8-10.6)
--- NOTE | 2020-04-11 14:06 | CT ---
EXAMINATION TYPE: CT abdomen pelvis wo con DATE OF EXAM: 04/11/2020 COMPARISON: None INDICATION: Enlarged liver, SOB and Right flank pain DLP: 1166.4 mGycm, Automated exposure control for dose reduction was used. CONTRAST: 0 mL of Isovue 300. Study performed without Oral Contrast TECHNIQUE: Axial images were obtained from above the diaphragm to the pubic rami in the axial plane a t 5 mm thick sections. Reconstructed images are reviewed on the computer in the coronal plane. FINDINGS: Limited CT sections are obtained the lung bases. The lung bases are clear. CT ABDOMEN: Liver: Normal. No masses or cysts are evident. No biliary dilatation is evident. Spleen: Normal Pancreas: Atrophic Adrenal glands: The adrenal glands are normal. Gallbladder: Surgically absent Kidneys: No masses are evident. No hydronephrosis is present. No cysts are present. No renal stone s are evident. There is some malrotation of the right kidney. Aorta: Normal Inferior vena cava: Normal. CT PELVIS: Loops of bowel within the abdomen and pelvis are normal. The study is performed without oral cont rast limiting bowel evaluation. Appendix: Not visualized. No dilated tubular structures or inflammatory changes are evident. Urinary bladder: Normal. Genitourinary structures: Uterus is normal. Adnexal regions are clear. No free fluid is within the pe lvis. Osseous structures: No suspicious lytic or sclerotic lesions. IMPRESSIONS: 1. Normal noncontrast CT abdomen and pelvis.
[2020-04-11 14:17] LABS: Albumin 4.2 g/dL (3.5-5.0); Calcium 10.2 mg/dL (8.4-10.2); Potassium 4.8 mmol/L (3.5-5.1); Total Bilirubin 0.5 mg/dL (0.2-1.3); Total Protein 7.5 g/dL (6.3-8.2)
[2020-04-11 14:27] LABS: Appearance,Urine Cloudy (Clear); Bacteria,Urine Occasional /hpf; Bilirubin,Urine Negative (Negative); Blood,Urine Negative (Negative); Color,Urine Yellow; Glucose,Urine (UA) Negative (Negative); Hyaline Casts,Urine 7 /lpf (0-2); Ketones,Urine Trace (Negative); Leukocyte Esterase,Urine Moderate (Negative); Mucus,Urine Occasional /hpf; Nitrite,Urine Negative (Negative); Protein,Urine 1+ (Negative); RBC,Urine 4 /hpf (0-5); Specific Gravity,Urine 1.026 (1.001-1.035); Squamous Epithelial Cell,Urine 25 /hpf (0-4); WBC,Urine 17 /hpf (0-5)
[2020-04-11] MEDS ORDERED: NITROFURANTOIN MONOHYD/M-CRYST 100 MG CAP PO STA (15:09)
[2020-04-11 15:34] VITALS: BP 129/74; PULSE 64; RESP 18; TEMP 98
== END 2020-04-11 15:37 | disposition home or self-care (01) ==
LOC: EC 12:24
DX: N39.0 Urinary tract infection, site not specified (principal); F41.9 Anxiety disorder, unspecified; I25.119 Atherosclerotic heart disease of native coronary artery with unspecified angina pectoris; K21.9 Gastro-esophageal reflux disease without esophagitis; E78.5 Hyperlipidemia, unspecified; M19.90 Unspecified osteoarthritis, unspecified site; E11.22 Type 2 diabetes mellitus with diabetic chronic kidney disease; Z79.82 Long term (current) use of aspirin; Z79.84 Long term (current) use of oral hypoglycemic drugs; Z79.899 Other long term (current) drug therapy; Z88.0 Allergy status to penicillin; Z88.1 Allergy status to other antibiotic agents; Z88.2 Allergy status to sulfonamides; Z88.8 Allergy status to other drugs, medicaments and biological substances; Z91.041 Radiographic dye allergy status; Z87.891 Personal history of nicotine dependence; Z99.2 Dependence on renal dialysis; Z96.651 Presence of right artificial knee joint; Z95.5 Presence of coronary angioplasty implant and graft
CPT/HCPCS: 36415; 80053; 82150; 83605; 83690; 85025; 81001; 87086; 74176; 99284; 96374; 96375; 96361; J2270; J2405

== ENCOUNTER 2020-06-10 06:41 | Day surgery (SDC) | payer OTHER ==
[2020-06-06 18:06] VITALS: BMI 40.1
[~2020-06-10 06:41] MED LIST changes: -ALPRAZolam 0.25 MG TAB PO PRN; -ALPRAZolam 0.5 MG TAB PO PRN; -ASPIRIN 325 MG TAB PO STA; -ATORVASTATIN 80 MG TAB PO STA; +LACTATED RINGERS 1,000 ML IV SCH; +LIDOCAINE 1% (10MG/ML) FOR IV START INTRADERMA PRN; -NITROGLYCERIN SL TABS 0.4 MG TAB SUBLINGUAL PRN; -SODIUM CHLORIDE 0.9% 1,000 ML in EMPTY BAG 1 BAG IV ONE
[2020-06-10 07:25] LABS: Glucose,Whole Blood 200 mg/dL (75-99)
[2020-06-10 07:28] VITALS: TEMP 98.7
[2020-06-10] MEDS ORDERED: PROPOFOL 10 MG/ML 20 ML VIAL IV ONE (07:38)
[2020-06-10] MEDS ORDERED: LACTATED RINGERS 1,000 ML IV ONE (08:14)
[2020-06-10 08:17] VITALS: RESP 16
--- NOTE | 2020-06-10 08:21 | P.PCN ---
Date of Procedure: 06/10/20 Description of Procedure: BRIEF HISTORY: Patient is a 55-year-old female presenting for outpatient colonoscopy for screening for malignant neoplasm of the colon. No prior colonoscopy. No change in bowel habits. No family history of colon cancer. PROCEDURE PERFORMED: Colonoscopy with polypectomy. PREOPERATIVE DIAGNOSIS: Screening for malignant neoplasm colon, no prior colonoscopy. ESTIMATED BLOOD LOSS: Minimal. IV sedation per Anesthesia. PROCEDURE: After informed consent was obtained, the patient, was brought into the endoscopy unit. IV sedation was administered by Anesthesia under continuous monitoring. Digital rectal examination was normal. Initially the Olympus CF-190 flexible video colonoscope was then inserted in the rectum, gradually advanced into the cecum without any difficulty. Careful examination was performed as the scope was gradually being withdrawn. Ileocecal valve and the appendiceal orifice were visualized and appeared normal. Prep was excellent. Mucosa of the cecum, ascending colon, transverse colon, descending colon, sigmoid colon, and rectum appeared normal. A diminutive 2 mm descending colon polyp was removed with cold forcep polypectomy. Retroflexion was performed in the rectum and no lesions were seen. The patient tolerated the procedure well. IMPRESSION: Diminutive descending colon polyp removed with cold forceps. Otherwise, normal-appearing colon from rectum to cecum. RECOMMENDATIONS: Findings of this examination were discussed with the patient and her friend. Okay to resume diet. Okay to resume medications. Await pathology from polypectomy. Would recommend repeat colonoscopy in 7 years for colon polyps pending pathology from polypectomy.
[2020-06-10 08:34] VITALS: BP 125/66; PULSE 66
[2020-06-10] MEDS ORDERED: MIDAZOLAM 2 MG/2 ML VIAL IV PRN (20:05)
[2020-06-10] MEDS ORDERED: ONDANSETRON 4 MG/2 ML VIAL IVP PRN (20:05)
[2020-06-10] MEDS ORDERED: fentaNYL (PF) 50 MCG/ML 2 ML AMP IV PRN (20:05)
[2020-06-10] MEDS ORDERED: LACTATED RINGERS 1,000 ML IV SCH (20:15)
== END 2020-06-10 09:20 | disposition home or self-care (01) ==
LOC: ORWHC2ENDO 06:41
PROVIDERS: ATTEND Internal Medicine
DX: Z12.11 Encounter for screening for malignant neoplasm of colon (principal); K63.5 Polyp of colon; I10 Essential (primary) hypertension; E11.9 Type 2 diabetes mellitus without complications; I25.10 Atherosclerotic heart disease of native coronary artery without angina pectoris; E78.5 Hyperlipidemia, unspecified; K21.9 Gastro-esophageal reflux disease without esophagitis; Z95.5 Presence of coronary angioplasty implant and graft; Z91.041 Radiographic dye allergy status; Z88.1 Allergy status to other antibiotic agents; Z88.0 Allergy status to penicillin; Z88.8 Allergy status to other drugs, medicaments and biological substances; Z79.82 Long term (current) use of aspirin; Z79.899 Other long term (current) drug therapy; Z98.891 History of uterine scar from previous surgery; Z90.49 Acquired absence of other specified parts of digestive tract; Z96.651 Presence of right artificial knee joint; Z87.891 Personal history of nicotine dependence
CPT/HCPCS: 88305; 45380; J2704

== ENCOUNTER 2021-02-12 02:10 | Observation (INO) | payer OTHER ==
--- NOTE | 2021-02-12 02:53 | XR ---
EXAMINATION TYPE: XR chest 2V DATE OF EXAM: 02/12/2021 COMPARISON: 12/14/2018 HISTORY: Chest pain TECHNIQUE: 2 views FINDINGS: Heart and mediastinum are normal. Lungs are clear. Diaphragm is normal. Bony thorax is inta ct. There are chest leads. IMPRESSION: Normal chest. No change.
[2021-02-12 03:06] LABS: Basophils % (A) 1 %; Eosinophils # (A) 0.2 k/uL (0-0.7); Eosinophils % (A) 3 %; HCT 35.4 % (34.0-46.0); HGB 12.1 gm/dL (11.4-16.0); Lymphocytes # (A) 1.5 k/uL (1.0-4.8); Lymphocytes % (A) 26 %; MCH 33.2 pg (25.0-35.0); MCHC 34.2 g/dL (31.0-37.0); MCV 97.2 fL (80.0-100.0); Mean Platelet Volume 7.1; Monocytes # (A) 0.2 k/uL (0-1.0); Monocytes % (A) 4 %; Neutrophils # (A) 3.8 k/uL (1.3-7.7); Neutrophils % (A) 66 %; Platelet Count 189 k/uL (150-450); RBC 3.64 m/uL (3.80-5.40); RDW 14.1 % (11.5-15.5); WBC 5.8 k/uL (3.8-10.6)
[2021-02-12 03:18] LABS: ALT 20 U/L (4-34); AST 27 U/L (14-36); African American GFR (CKD) >90 (>60 ml/min/1.73 sqM); Alkaline Phosphatase 124 U/L (38-126); Anion Gap 6 mmol/L; Blood Urea Nitrogen 18 mg/dL (7-17); Calcium 9.3 mg/dL (8.4-10.2); Carbon Dioxide 32 mmol/L (22-30); Chloride 98 mmol/L (98-107); Glucose 186 mg/dL (74-99); Magnesium 2.2 mg/dL (1.6-2.3); Non-African American GFR(CKD) >90 (>60 ml/min/1.73 sqM); Potassium 4.3 mmol/L (3.5-5.1); Sodium 136 mmol/L (137-145); Total Bilirubin 0.2 mg/dL (0.2-1.3); Total Protein 7.1 g/dL (6.3-8.2)
[2021-02-12 03:25] LABS: INR 0.9 (<1.2); Prothrombin Time 9.8 sec (9.0-12.0)
--- NOTE | 2021-02-12 03:27 | ED ---
Chest Pain HPI - General Chief Complaint: Chest Pain Stated Complaint: Chest Pain Time Seen by Provider: 02/12/21 02:28 Source: patient, EMS Mode of arrival: EMS Limitations: no limitations - History of Present Illness Initial Comments: Patient's 56-year-old woman presenting with substernal chest pain. She states that she first noticed it about 3 weeks ago. It was initially mild and it was intermittent. She states that it is now constant and moderate so she felt she should be evaluated. It does remind her of the pain she was having before she required having a stent placement. She has not had associated symptoms. MD Complaint: chest pain Onset/Timin -: week(s) Onset: during rest Pain Location: substernal Pain Radiation: none Severity: moderate Quality: dull Consistency: constant Improves With: nothing Worsens With: nothing Treatments Prior to Arrival: none - Related Data Home Medications Medication Instructions Recorded Confirmed Aspirin 81 mg PO DAILY 12/17/16 02/12/21 HYDROcodone/APAP 7.5-325MG [[place] 1 tab PO QID 12/17/16 02/12/21 7.5-325] Orphenadrine [Norflex] 100 mg PO BID 12/17/16 02/12/21 PARoxetine HCL [Paxil] 20 mg PO DAILY 12/17/16 02/12/21 Pantoprazole [Protonix] 40 mg PO DAILY 12/17/16 02/12/21 Gabapentin [Neurontin] 100 mg PO TID 12/14/18 02/12/21 Isosorbide Mononitrate ER [Imdur] 30 mg PO DAILY 12/14/18 02/12/21 Losartan Potassium [Cozaar] 25 mg PO DAILY 12/14/18 02/12/21 Metoprolol Tartrate [Lopressor] 12.5 mg PO BID 12/14/18 02/12/21 Atorvastatin [Lipitor] 80 mg PO HS 04/11/20 02/12/21 Pioglitazone [Actos] 45 mg PO DAILY 04/11/20 02/12/21 B Complex W-C No.20/Folic Acid 1 mg PO DAILY 05/15/20 02/12/21 [Renal Caps Softgel] Dicyclomine [Bentyl] 20 mg PO TID 05/15/20 02/12/21 Nitroglycerin Sl Tabs [Nitrostat] 0.4 mg SUBLINGUAL Q5M PRN 06/06/20 02/12/21 Cholecalciferol [Vitamin D3 (25 25 mcg PO TID 02/12/21 02/12/21 Mcg = 1000 Iu)] Divalproex ER [Depakote ER] 250 mg PO BID 02/12/21 02/12/21 Magnesium Oxide 800 mg PO BID 02/12/21 02/12/21 Red Yeast Rice 600 mg PO DAILY 02/12/21 02/12/21 Allergies Allergy/AdvReac Type Severity Reaction Status Date / Time cephalexin [From Keflex] Allergy Rash/Hives Verified 02/12/21 06:46 ezetimibe [From Zetia] Allergy headache,na Verified 02/12/21 06:46 usea,vomiti ng Iodinated Contrast Media Allergy Unknown Verified 02/12/21 06:46 [Iodinated Contrast Media - Oral and] iodine Allergy Unknown Verified 02/12/21 06:46 metformin Allergy Diarrhea Verified 02/12/21 06:46 metronidazole [From Flagyl] Allergy Rash/Hives Verified 02/12/21 06:46 Penicillins Allergy Unknown Verified 02/12/21 06:46 rosuvastatin [From Crestor] Allergy Unknown Verified 02/12/21 06:46 sulfamethoxazole Allergy Rash/Hives Verified 02/12/21 06:46 [From Bactrim] trimethoprim [From Bactrim] Allergy Rash/Hives Verified 02/12/21 06:46 Review of Systems ROS Statement: Those systems with pertinent positive or pertinent negative responses have been documented in the HPI. ROS Other: All systems not noted in ROS Statement are negative. Constitutional: Denies: fever, chills Respiratory: Denies: cough, dyspnea Cardiovascular: Reports: chest pain. Denies: palpitations, orthopnea, edema Gastrointestinal: Reports: abdominal pain (Months of abdominal pain). Denies: nausea, vomiting, diarrhea, constipation Genitourinary: Denies: dysuria, hematuria Musculoskeletal: Denies: back pain Skin: Denies: rash Neurological: Denies: headache, weakness, numbness EKG Findings - EKG Comments: EKG Findings:: Low voltage QRS complex. Possible old septal infarct. - EKG Results: EKG: interpreted by TYLER, sinus rhythm Past Medical History Past Medical History: Coronary Artery Disease (CAD), Chest Pain / Angina, Di abetes Mellitus, GERD/Reflux, Hyperlipidemia, Hypertension, Osteoarthritis (OA), Renal Disease Additional Past Medical History / Comment(s): Type II diabetic, past hx renal fa ilure in 2011 related to crestor per pt-was on dialysis for 3-4 months, bulging discs with back pain. chondromalacia of knees- right knee junior at times. migraines. fatty liver, poss. IBS, right abd pain radiating to back History of Any Multi-Drug Resistant Organisms: None Reported Past Surgical History: Section, Cholecystectomy, Heart Catheterization With Stent, Joint Replacement, Orthopedic Surgery Additional Past Surgical History / Comment(s): C/S x3, right knee replaced, Hemodialysis catheter inserted and removed. Past Anesthesia/Blood Transfusion Reactions: Motion Sickness Date of Last Stent Placement:: 03/08/17 Past Psychological History: Anxiety Smoking Status: Former smoker Past Alcohol Use History: None Reported - Past Family History Brother(s) Family Medical History: Cancer Mother Family Medical History: Cancer, Diabetes Mellitus, Renal Disease Father Family Medical History: Coronary Artery Disease (CAD), Hyperlipidemia, Myocardial Infarction ([place]) Additional Family Medical History / Comment(s): Father from [place] General Exam Limitations: no limitations General appearance: alert, in no apparent distress Head exam: Present: atraumatic, normocephalic Eye exam: Present: normal appearance. Absent: scleral icterus, conjunctival injection Neck exam: Present: normal inspection Respiratory exam: Present: normal lung sounds bilaterally. Absent: respiratory distress, wheezes, rales, rhonchi, stridor Cardiovascular Exam: Present: regular rate, normal rhythm, normal heart sounds. Absent: systolic murmur, diastolic murmur, rubs, gallop GI/Abdominal exam: Present: soft. Absent: distended, tenderness, guarding, rebound, rigid, mass, pulsatile mass, hernia Extremities exam: Present: normal inspection, normal capillary refill. Absent: pedal edema, calf tenderness Back exam: Present: normal inspection. Absent: CVA tenderness (R), CVA tenderness (L) Neurological exam: Present: alert Skin exam: Present: warm, dry, intact, normal color. Absent: rash Course Vital Signs 02/12/21 02/12/21 02/12/21 02:21 03:27 06:07 Temperature 98.2 F Pulse Rate 69 68 73 Respiratory 18 18 20 Rate Blood Pressure 170/81 134/83 120/97 O2 Sat by Pulse 96 96 97 Oximetry Disposition Clinical Impression: Chest pain Disposition: ADMITTED IP TO THIS HOSP Condition: Good Is patient prescribed a controlled substance at d/c from ED?: No
[2021-02-12 03:32] LABS: Partial Thromboplastin Time 19.4 sec (22.0-30.0)
[2021-02-12] MEDS ORDERED: NITROGLYCERIN SL TABS 0.4 MG TAB SUBLINGUAL PRN ×2 (04:34→09:23)
[2021-02-12] MEDS ORDERED: PANTOPRAZOLE 40 MG TABLET PO SCH (07:30)
[2021-02-12 07:43] LABS: Glucose,Whole Blood 168 mg/dL (75-99)
[2021-02-12] MEDS: DICYCLOMINE 20 MG TAB PO SCH ×2 (08:37→13:16)
[2021-02-12] MEDS: GABAPENTIN 100 MG CAP PO SCH ×2 (08:37→16:42)
[2021-02-12] MEDS: HYDROcodone/APAP 7.5-325MG 1 EACH TAB PO SCH ×2 (08:38→13:16)
[2021-02-12] MEDS ORDERED: ASPIRIN 81 MG PO SCH (09:00)
[2021-02-12] MEDS ORDERED: LOSARTAN 25 MG TAB PO SCH (09:00)
[2021-02-12] MEDS ORDERED: PIOGLITAZONE 45 MG TAB PO SCH (09:00)
[2021-02-12] MEDS ORDERED: DIVALPROEX 250 MG TABLET.DR PO SCH ×2 (09:00)
[2021-02-12] MEDS ORDERED: ISOSORBIDE MONONITRATE ER 30 MG TAB.ER.24H PO SCH (09:00)
[2021-02-12] MEDS ORDERED: METOPROLOL TARTRATE 12.5 MG TAB PO SCH (09:00)
[2021-02-12] MEDS ORDERED: PARoxetine 20 MG TAB PO SCH (09:00)
--- NOTE | 2021-02-12 11:05 | P.CRDCN ---
History of Present Illness History of present illness: HISTORY OF PRESENTING ILLNESS This is a pleasant 56-year-old female past medical history significant for coronary artery disease status post PCI to the mid LAD in 02/2017, type 2 diabetes, dyslipidemia, hypertension. She follows in the office with Dr. Min. We have been asked to see in consultation for chest pain. Patient states for the past 3 weeks she has been having chest pain. It is located midsternal chest, she does notice it moves side to side across her right and left anterior chest. It is non-radiating, non-exertional. She did take nitro at home and it did not help. She states it is intermittent, however now it became more constant. It is tender to palpation. It is worse with movement and also her left shoulder hurts with movement. She also has chronic right sided lower back pain that is also tender to touch, she takes Flasher for this. She does not have any associated vinayak rtness of breath, nausea, diaphoresis, palpiations. She denies injury or heavy lifting. She does endorse some continuous stress at home do the covid-19 pandemic. She denies symptoms of orthopnea or PND. She states this chest pain is different from when she had her stent placed in 2017, she states in 2017 she barely remembers coming to the hospital because her chest pain was so intense. Patient was admitted to the hospital in 12/2018 with chest pain. At that time she had symptoms of chest discomfort for 3 hours. With associated palpitations and shortness of breath. She underwent a stress test that revealed anterior ischemia. Echocardiogram at that time revealed EF 50-55%, trace mitral regurgitation, trace tricuspid regurgitation. She underwent cardiac catheterization with Dr. Min which revealed chronic total occlusion of the right coronary artery which is a known finding, patent stent in the mid LAD, elevated left ventricular enddiastolic pressure. Medical therapy is recommen ded at that time. DIAGNOSTICS EKG reveals sinus rhythm, heart rate 64, nonspecific STT wave abnormalities. EKG in 12/2018 with similar findings. Chest xray no acute cardiopulmonary process. Laboratory reviewed, troponin negative 3, CBC unremarkable, sodium 136, potassium 4.3, BUN 18, serum creatinine 0.62, magnesium 2.2, COVID-19 negative REVIEW OF SYSTEMS At the time of my exam: CONSTITUTIONAL: Denies fever or chills. CARDIOVASCULAR: +chest pain Denies shortness of breath, orthopnea, PND or palpitations. RESPIRATORY: Denies cough. GASTROINTESTINAL: Denies abdominal pain, diarrhea, constipation, nausea or vomiting. MUSCULOSKELETAL: +left shoulder pain NEUROLOGIC: Denies numbness, tingling, headacbe or weakness. ENDOCRINE: Denies fatigue, weight change, polydipsia or polyurina. GENITOURINARY: Denies burning, hematuria or urgency with micturation. HEMATOLOGIC: Denies history of anemia or bleeding. PHYSICAL EXAMINATION Blood pressure 121/66 heart rate 66 afebrile and maintaining oxygen saturation 98% on room air. CONSTITUTIONAL: No apparent distress. HEENT: Head is normocephalic. Pupils are equal, round. Sclerae anicteric. Mucous membranes of the mouth are moist. No JVD. No carotid bruit. CHEST EXAMINATION: Lungs are clear to auscultation. THere is chest wall tenderness left anterior chest with palpation HEART EXAMINATION: Regular rate and rhythm. S1, S2 heard. No murmurs, gallops or rub. ABDOMEN: Soft, nontender. Positive bowel sounds. EXTREMITIES: 2+ peripheral pulses, no lower extremity edema and no calf tenderness. SKIN: intact NEUROLOGIC EXAMINATION: Patient is awake, alert and oriented x3. ASSESSMENT Chest pain, atypical, acute coronary lesion and has been ruled out Coronary artery disease status post PCI to the mid LAD in 02/2017 Type 2 diabetes Dyslipidemia Hypertension PLAN An acute coronary event has been ruled out with no EKG evidence of ischemia and negative cardiac enzymes. Obtain 2D echocardiogram and doppler study to assess cardiac structure and function. Lipid Panel ordered Recommend PRN Ibuprofen for musculoskeletal pain If echocardiogram with no acute findings, ok to discharge from a cardiology perspective and follow up outpatient with Dr. Min. Thank you kindly for this consultation. Nurse Practitioner note has been reviewed, I agree with a documented findings and plan of care. Patient was seen and examined. Past Medical History Past Medical History: Coronary Artery Disease (CAD), Chest Pain / Angina, Diabetes Mellitus, GERD/Reflux, Hyperlipidemia, Hypertension, Osteoarthritis (OA), Renal Disease Additional Past Medical History / Comment(s): Type II diabetic, past hx renal failure in 2011 related to crestor per pt-was on dialysis for 3-4 months, bulging discs with back pain. chondromalacia of knees- right knee junior at times. migraines. fatty liver, poss. IBS, right abd pain radiating to back History of Any Multi-Drug Resistant Organisms: None Reported Past Surgical History: Section, Cholecystectomy, Heart Catheterization With Stent, Joint Replacement, Orthopedic Surgery Additional Past Surgical History / Comment(s): C/S x3, right knee replaced, Hemodialysis catheter inserted and removed. Past Anesthesia/Blood Transfusion Reactions: Motion Sickness Date of Last Stent Placement:: 03/08/17 Past Psychological History: Anxiety Smoking Status: Former smoker Past Alcohol Use History: None Reported - Past Family History Brother(s) Family Medical History: Cancer Mother Family Medical History: Cancer, Diabetes Mellitus, Renal Disease Father Family Medical History: Coronary Artery Disease (CAD), Hyperlipidemia, Myocardial Infarction ([place]) Additional Family Medical History / Comment(s): Father from [facility] Medications and Allergies Home Medications Medication Instructions Recorded Confirmed Type Aspirin 81 mg PO DAILY 12/17/16 02/12/21 History HYDROcodone/APAP 7.5-325MG [Flasher 1 tab PO QID 12/17/16 02/12/21 History 7.5-325] Orphenadrine [Norflex] 100 mg PO BID 12/17/16 02/12/21 History PARoxetine HCL [Paxil] 20 mg PO DAILY 12/17/16 02/12/21 History Pantoprazole [Protonix] 40 mg PO DAILY 12/17/16 02/12/21 History Gabapentin [Neurontin] 100 mg PO TID 12/14/18 02/12/21 History Isosorbide Mononitrate ER [Imdur] 30 mg PO DAILY 12/14/18 02/12/21 History Losartan Potassium [Cozaar] 25 mg PO DAILY 12/14/18 02/12/21 History Metoprolol Tartrate [Lopressor] 12.5 mg PO BID 12/14/18 02/12/21 History Atorvastatin [Lipitor] 80 mg PO HS 04/11/20 02/12/21 History Pioglitazone [Actos] 45 mg PO DAILY 04/11/20 02/12/21 History B Complex W-C No.20/Folic Acid 1 mg PO DAILY 05/15/20 02/12/21 History [Renal Caps Softgel] Dicyclomine [Bentyl] 20 mg PO TID 05/15/20 02/12/21 History Nitroglycerin Sl Tabs [Nitrostat] 0.4 mg SUBLINGUAL Q5M PRN 06/06/20 02/12/21 History Cholecalciferol [Vitamin D3 (25 25 mcg PO TID 02/12/21 02/12/21 History Mcg = 1000 Iu)] Divalproex ER [Depakote ER] 250 mg PO BID 02/12/21 02/12/21 History Magnesium Oxide 800 mg PO BID 02/12/21 02/12/21 History Red Yeast Rice 600 mg PO DAILY 02/12/21 02/12/21 History Allergies Allergy/AdvReac Type Severity Reaction Status Date / Time cephalexin [From Keflex] Allergy Rash/Hives Verified 02/12/21 06:46 ezetimibe [From Zetia] Allergy headache,na Verified 02/12/21 06:46 usea,vomiti ng Iodinated Contrast Media Allergy Unknown Verified 02/12/21 06:46 [Iodinated Contrast Media - Oral and] iodine Allergy Unknown Verified 02/12/21 06:46 metformin Allergy Diarrhea Verified 02/12/21 06:46 metronidazole [From Flagyl] Allergy Rash/Hives Verified 02/12/21 06:46 Penicillins Allergy Unknown Verified 02/12/21 06:46 rosuvastatin [From Crestor] Allergy Unknown Verified 02/12/21 06:46 sulfamethoxazole Allergy Rash/Hives Verified 02/12/21 06:46 [From Bactrim] trimethoprim [From Bactrim] Allergy Rash/Hives Verified 02/12/21 06:46 Physical Exam Vitals: Vital Signs Temp Pulse Resp BP Pulse Ox 02/12/21 06:07 73 20 120/97 97 02/12/21 03:27 68 18 134/83 96 02/12/21 02:21 98.2 F 69 18 170/81 96 Intake and Output 02/11/21 02/12/21 02/12/21 22:59 06:59 14:59 Other: Weight 105.687 kg Results 02/12/21 02:46 02/12/21 02:48 Cardiac Enzymes 02/12/21 02/12/21 02/12/21 Range/Units 02:48 02:48 05:20 AST 27 (14-36) U/L Troponin I <0.012 <0.012 (0.000-0.034) ng/mL Coagulation 02/12/21 Range/Units 02:48 PT 9.8 (9.0-12.0) sec APTT 19.4 L (22.0-30.0) sec CBC 02/12/21 Range/Units 02:46 WBC 5.8 (3.8-10.6) k/uL RBC 3.64 L (3.80-5.40) m/uL Hgb 12.1 (11.4-16.0) gm/dL Hct 35.4 (34.0-46.0) % Plt Count 189 (150-450) k/uL Comprehensive Metabolic Panel 02/12/21 Range/Units 02:48 Sodium 136 L (137-145) mmol/L Potassium 4.3 (3.5-5.1) mmol/L Chloride 98 (98-107) mmol/L Carbon Dioxide 32 H (22-30) mmol/L BUN 18 H (7-17) mg/dL Creatinine 0.62 (0.52-1.04) mg/dL Glucose 186 H (74-99) mg/dL Calcium 9.3 (8.4-10.2) mg/dL AST 27 (14-36) U/L ALT 20 (4-34) U/L Alkaline Phosphatase 124 (38-126) U/L Total Protein 7.1 (6.3-8.2) g/dL Albumin 4.0 (3.5-5.0) g/dL Current Medications Generic Name Dose Route Start Last Admin Trade Name Freq PRN Reason Stop Dose Admin Hydrocodone Bitart/Acetaminophen 1 each 02/12/21 09:00 Hydrocodone/Apap 7.5-325mg 1 Each Tab PO QID [facility] Aspirin 81 mg 02/12/21 09:00 Aspirin 81 Mg PO DAILY [facility] Atorvastatin Calcium 80 mg 02/12/21 21:00 Atorvastatin 80 Mg Tab PO HS [facility] Dicyclomine HCl 20 mg 02/12/21 09:00 Dicyclomine 20 Mg Tab PO QID [facility] Divalproex Sodium 250 mg 02/12/21 09:00 Divalproex 250 Mg Tablet.Dr PO BID [facility] Gabapentin 100 mg 02/12/21 09:00 Gabapentin 100 Mg Cap PO TID [facility] Isosorbide Mononitrate 30 mg 02/12/21 09:00 Isosorbide Mononitrate Er 30 Mg Tab.Er.24h PO DAILY [facility] Losartan Potassium 25 mg 02/12/21 09:00 Losartan 25 Mg Tab PO DAILY [facility] Metoprolol Tartrate 12.5 mg 02/12/21 09:00 Metoprolol Tartrate 12.5 Mg Tab PO BID [facility] Nitroglycerin 0.4 mg 02/12/21 04:34 Nitroglycerin Sl Tabs 0.4 Mg Tab SUBLINGUAL Q5M PRN Chest Pain Pantoprazole Sodium 40 mg 02/12/21 07:30 Pantoprazole 40 Mg Tablet PO AC-BRKFST [facility] Paroxetine HCl 20 mg 02/12/21 09:00 Paroxetine 20 Mg Tab PO DAILY [facility] Pioglitazone HCl 45 mg 02/12/21 09:00 Pioglitazone 45 Mg Tab PO DAILY [facility] Sodium Chloride 10 ml 02/12/21 09:00 Sodium Chloride 0.9% Flush 10 Ml Syringe IV BID [facility] Intake and Output 02/11/21 02/12/21 02/12/21 22:59 06:59 14:59 Other: Weight 105.687 kg 02/12/21 02:46 02/12/21 02:48
[2021-02-12 12:03] LABS: Glucose,Whole Blood 182 mg/dL (75-99)
[2021-02-12 14:45] VITALS: BP 120/68; PULSE 65; RESP 16; TEMP 98.1
[2021-02-12] MEDS ORDERED: CHOLECALCIFEROL 25 MCG (1000 IU) TABLET PO SCH (16:00)
--- NOTE | 2021-02-12 16:36 | P.DS ---
Providers Date of admission: 02/12/21 04:34 Attending physician: Wilmer Pfeiffer Consults: 02/12/21 04:34 Consult Physician Routine Consulting Provider: Angelo Min Consult Reason/Comments: chest pain Do you want consulting provider notified?: Yes Primary care physician: Kal Park Hospital Course: Please refer to my HPI for further details Patient Condition at Discharge: Good Plan - Discharge Summary New Discharge Prescriptions: Continue HYDROcodone/APAP 7.5-325MG [[place] 7.5-325] 1 tab PO QID Aspirin 81 mg PO DAILY Orphenadrine [Norflex] 100 mg PO BID Pantoprazole [Protonix] 40 mg PO DAILY PARoxetine HCL [Paxil] 20 mg PO DAILY Isosorbide Mononitrate ER [Imdur] 30 mg PO DAILY Gabapentin [Neurontin] 100 mg PO TID Losartan Potassium [Cozaar] 25 mg PO DAILY Metoprolol Tartrate [Lopressor] 12.5 mg PO BID Atorvastatin [Lipitor] 80 mg PO HS Pioglitazone [Actos] 45 mg PO DAILY Dicyclomine [Bentyl] 20 mg PO TID B Complex W-C No.20/Folic Acid [Renal Caps Softgel] 1 mg PO DAILY Nitroglycerin Sl Tabs [Nitrostat] 0.4 mg SUBLINGUAL Q5M PRN PRN Reason: CP Cholecalciferol [Vitamin D3 (25 Mcg = 1000 Iu)] 25 mcg PO TID Red Yeast Rice 600 mg PO DAILY Magnesium Oxide 800 mg PO BID Divalproex ER [Depakote ER] 250 mg PO BID Discharge Medication List Aspirin 81 mg PO DAILY 12/17/16 [History] HYDROcodone/APAP 7.5-325MG [[place] 7.5-325] 1 tab PO QID 12/17/16 [History] Orphenadrine [Norflex] 100 mg PO BID 12/17/16 [History] PARoxetine HCL [Paxil] 20 mg PO DAILY 12/17/16 [History] Pantoprazole [Protonix] 40 mg PO DAILY 12/17/16 [History] Gabapentin [Neurontin] 100 mg PO TID 12/14/18 [History] Isosorbide Mononitrate ER [Imdur] 30 mg PO DAILY 12/14/18 [History] Losartan Potassium [Cozaar] 25 mg PO DAILY 12/14/18 [History] Metoprolol Tartrate [Lopressor] 12.5 mg PO BID 12/14/18 [History] Atorvastatin [Lipitor] 80 mg PO HS 04/11/20 [History] Pioglitazone [Actos] 45 mg PO DAILY 04/11/20 [History] B Complex W-C No.20/Folic Acid [Renal Caps Softgel] 1 mg PO DAILY 05/15/20 [History] Dicyclomine [Bentyl] 20 mg PO TID 05/15/20 [History] Nitroglycerin Sl Tabs [Nitrostat] 0.4 mg SUBLINGUAL Q5M PRN 06/06/20 [History] Cholecalciferol [Vitamin D3 (25 Mcg = 1000 Iu)] 25 mcg PO TID 02/12/21 [History] Divalproex ER [Depakote ER] 250 mg PO BID 02/12/21 [History] Magnesium Oxide 800 mg PO BID 02/12/21 [History] Red Yeast Rice 600 mg PO DAILY 02/12/21 [History] Follow up Appointment(s)/Referral(s): Angelo Min MD [STAFF PHYSICIAN] - 2 Weeks Kal Park MD [Primary Care Provider] - 3 Days
--- NOTE | 2021-02-12 16:36 | P.HPIM ---
History of Present Illness Patient is a 56-year-old the female came in the with the complaints of chest pain has been going on on and off patient chest pain is reproducible sharp nonradiating and nonexertional not associated with food no lightheadedness denie d any diaphoresis constant. Patient's pain is worse with the movement. Patient chest x-ray did not show any significant abnormality EKG shows sinus rhythm without any acute ST-T wave changes troponins were negative. All the workup is so for negative. Patient had history of coronary artery disease with PCI to mid LAD in 2017. Patient had a stress test in 2019 which was negative for any inducible ischemia. REVIEW OF SYSTEMS: CONSTITUTIONAL: No fever, no malaise, no fatigue. HEENT: No recent visual problems or hearing problems. Denied any sore throat. CARDIOVASCULAR: No, orthopnea, PND, no palpitations, no syncope. PULMONARY: No shortness of breath, no cough, no hemoptysis. GASTROINTESTINAL: No diarrhea, no nausea, no vomiting, no abdominal pain. NEUROLOGICAL: No headaches, no weakness, no numbness. HEMATOLOGICAL: Denies any bleeding or petechiae. GENITOURINARY: Denies any burning micturition, frequency, or urgency. MUSCULOSKELETAL/RHEUMATOLOGICAL: Denies any joint pain, swelling, or any muscle pain. ENDOCRINE: Denies any polyuria or polydipsia. The rest of the 14-point review of systems is negative. PHYSICAL EXAMINATION: GENERAL: The patient is alert and oriented x3, not in any acute distress. Well developed, well nourished. HEENT: Pupils are round and equally reacting to light. EOMI. No scleral icterus. No conjunctival pallor. Normocephalic, atraumatic. No pharyngeal erythema. No thyromegaly. CARDIOVASCULAR: S1 and S2 present. No murmurs, rubs, or gallops. PULMONARY: Chest is clear to auscultation, no wheezing or crackles. ABDOMEN: Soft, nontender, nondistended, normoactive bowel sounds. No palpable organomegaly. MUSCULOSKELETAL: No joint swelling or deformity. EXTREMITIES: No cyanosis, clubbing, or pedal edema. NEUROLOGICAL: Gross neurological examination did not reveal any focal deficits. SKIN: No rashes. Assessment and plan Chest pain: Ruled out acute coronary syndromes patient chest pain is musculoskeletal in nature, cardiology evaluated the patient cleared for discharge no further testing is being ordered. Patient will be discharged to follow up with the her tubular riveter as an outpatient. Patient was recommended to take Tylenol or [id number] nonsteroidal anti-inflammatories for chest wall pain. -Coronary artery disease with PCI in the past -Type 2 diabetes mellitus -Dyslipidemia -Hypertension Past Medical History Past Medical History: Coronary Artery Disease (CAD), Chest Pain / Angina, Diabetes Mellitus, GERD/Reflux, Hyperlipidemia, Hypertension, Osteoarthritis (OA), Renal Disease Additional Past Medical History / Comment(s): Type II diabetic, past hx renal failure in 2011 related to crestor per pt-was on dialysis for 3-4 months, bulging discs with back pain. chondromalacia of knees- right knee junior at times. migraines. fatty liver, poss. IBS, right abd pain radiating to back History of Any Multi-Drug Resistant Organisms: None Reported Past Surgical History: Section, Cholecystectomy, Heart Catheterization With Stent, Joint Replacement, Orthopedic Surgery Additional Past Surgical History / Comment(s): C/S x3, right knee replaced, Hemodialysis catheter inserted and removed. Past Anesthesia/Blood Transfusion Reactions: Motion Sickness Date of Last Stent Placement:: 03/08/17 Past Psychological History: Anxiety Smoking Status: Former smoker Past Alcohol Use History: None Reported - Past Family History Brother(s) Family Medical History: Cancer Mother Family Medical History: Cancer, Diabetes Mellitus, Renal Disease Father Family Medical History: Coronary Artery Disease (CAD), Hyperlipidemia, Myocardi al Infarction ([place]) Additional Family Medical History / Comment(s): Father from AAA Medications and Allergies Home Medications Medication Instructions Recorded Confirmed Type Aspirin 81 mg PO DAILY 12/17/16 02/12/21 History HYDROcodone/APAP 7.5-325MG [Vera 1 tab PO QID 12/17/16 02/12/21 History 7.5-325] Orphenadrine [Norflex] 100 mg PO BID 12/17/16 02/12/21 History PARoxetine HCL [Paxil] 20 mg PO DAILY 12/17/16 02/12/21 History Pantoprazole [Protonix] 40 mg PO DAILY 12/17/16 02/12/21 History Gabapentin [Neurontin] 100 mg PO TID 12/14/18 02/12/21 History Isosorbide Mononitrate ER [Imdur] 30 mg PO DAILY 12/14/18 02/12/21 History Losartan Potassium [Cozaar] 25 mg PO DAILY 12/14/18 02/12/21 History Metoprolol Tartrate [Lopressor] 12.5 mg PO BID 12/14/18 02/12/21 History Atorvastatin [Lipitor] 80 mg PO HS 04/11/20 02/12/21 History Pioglitazone [Actos] 45 mg PO DAILY 04/11/20 02/12/21 History B Complex W-C No.20/Folic Acid 1 mg PO DAILY 05/15/20 02/12/21 History [Renal Caps Softgel] Dicyclomine [Bentyl] 20 mg PO TID 05/15/20 02/12/21 History Nitroglycerin Sl Tabs [Nitrostat] 0.4 mg SUBLINGUAL Q5M PRN 06/06/20 02/12/21 History Cholecalciferol [Vitamin D3 (25 25 mcg PO TID 02/12/21 02/12/21 History Mcg = 1000 Iu)] Divalproex ER [Depakote ER] 250 mg PO BID 02/12/21 02/12/21 History Magnesium Oxide 800 mg PO BID 02/12/21 02/12/21 History Red Yeast Rice 600 mg PO DAILY 02/12/21 02/12/21 History Allergies Allergy/AdvReac Type Severity Reaction Status Date / Time cephalexin [From Keflex] Allergy Rash/Hives Verified 02/12/21 06:46 ezetimibe [From Zetia] Allergy headache,na Verified 02/12/21 06:46 usea,vomiti ng Iodinated Contrast Media Allergy Unknown Verified 02/12/21 06:46 [Iodinated Contrast Media - Oral and] iodine Allergy Unknown Verified 02/12/21 06:46 metformin Allergy Diarrhea Verified 02/12/21 06:46 metronidazole [From Flagyl] Allergy Rash/Hives Verified 02/12/21 06:46 Penicillins Allergy Unknown Verified 02/12/21 06:46 rosuvastatin [From Crestor] Allergy Unknown Verified 02/12/21 06:46 sulfamethoxazole Allergy Rash/Hives Verified 02/12/21 06:46 [From Bactrim] trimethoprim [From Bactrim] Allergy Rash/Hives Verified 02/12/21 06:46 Physical Exam Vitals: Vital Signs Temp Pulse Pulse Resp BP BP Pulse Ox 02/12/21 14:44 98.1 F 65 16 120/68 94 L 02/12/21 09:16 66 18 133/68 98 02/12/21 08:41 69 18 121/66 98 02/12/21 07:46 97.8 F 68 18 107/68 98 02/12/21 06:07 73 20 120/97 97 02/12/21 03:27 68 18 134/83 96 02/12/21 02:21 98.2 F 69 18 170/81 96 Intake and Output 02/12/21 02/12/21 02/12/21 06:59 14:59 22:59 Other: # Voids 1 # Bowel Movements 0 Weight 105.687 kg Results CBC & Chem 7: 02/12/21 02:46 02/12/21 02:48 Labs: Abnormal Lab Results - Last 24 Hours (Table) 02/12/21 02/12/21 02/12/21 Range/Units 02:46 02:48 02:48 RBC 3.64 L (3.80-5.40) m/uL APTT 19.4 L (22.0-30.0) sec Sodium 136 L (137-145) mmol/L Carbon Dioxide 32 H (22-30) mmol/L BUN 18 H (7-17) mg/dL Glucose 186 H (74-99) mg/dL POC Glucose (mg/dL) (75-99) mg/dL 02/12/21 02/12/21 Range/Units 07:42 12:01 RBC (3.80-5.40) m/uL APTT (22.0-30.0) sec Sodium (137-145) mmol/L Carbon Dioxide (22-30) mmol/L BUN (7-17) mg/dL Glucose (74-99) mg/dL POC Glucose (mg/dL) 168 H 182 H (75-99) mg/dL
[2021-02-12 16:52] LABS: Glucose,Whole Blood 212 mg/dL (75-99)
[2021-02-12] MEDS ORDERED: ATORVASTATIN 80 MG TAB PO SCH (21:00)
[2021-02-12] MEDS ORDERED: DIVALPROEX ER 250 MG TAB.ER.24H PO SCH (21:00)
[2021-02-13] MEDS ORDERED: ASPIRIN 325 MG TAB PO SCH (09:00)
--- NOTE | 2021-02-13 11:00 | ECHOF ---
Referral Reason:chest pain, LV function MEASUREMENTS -------- HEIGHT: 162.6 cm WEIGHT: 105.7 kg BP: 133/68 IVSd: 1.3 cm (0.6 - 1.1) LVIDd: 3.0 cm (3.9 - 5.3) LVPWd: 1.4 cm (0.6 - 1.1) IVSs: 1.4 cm LVIDs: 2.2 cm LVPWs: 1.9 cm LAESV Index (A-L): 21.37 ml/m MV E Helder: 1.04 m/s MV DecT: 172 ms MV A Helder: 0.83 m/s MV E/A Ratio: 1.26 FINDINGS -------- Sinus rhythm. This was a technically difficult study with suboptimal views. The left ventricular size is normal. There is moderate concentric left ventricular hypertrophy. O verall left ventricular systolic function is normal with, an EF between 55 - 60 %. The RV was not well visualized. Normal LA size by volume 22+/-6 ml/m2. The right atrium was not well visualized. 5.0mg of Lumason was utilized for enhancement of images Interatrial and interventricular septum intact. The aortic valve was not well visualized. There is no evidence of aortic regurgitation. There is no evidence of aortic stenosis. The mitral valve was not well visualized. No mitral regurgitation. The tricuspid valve was not well visualized. The pulmonic valve was not well visualized. The aortic root size is normal. IVC Not well visulized. There is no pericardial effusion. CONCLUSIONS -------- 1. The left ventricular size is normal. 2. There is moderate concentric left ventricular hypertrophy. 3. Overall left ventricular systolic function is normal with, an EF between 55 - 60 %. NEON GLASS BLOWER: Constance Anderson RDCS
== END 2021-02-12 19:30 | disposition home or self-care (01) ==
LOC: EC 02:10 → 6NMEDSUR 04:34
PROVIDERS: ADMIT Hospitalist; ATTEND Hospitalist
DX: R07.89 Other chest pain (principal); E11.9 Type 2 diabetes mellitus without complications; E78.5 Hyperlipidemia, unspecified; I10 Essential (primary) hypertension; I25.10 Atherosclerotic heart disease of native coronary artery without angina pectoris; I25.82 Chronic total occlusion of coronary artery; K21.9 Gastro-esophageal reflux disease without esophagitis; K58.9 Irritable bowel syndrome, unspecified; G43.909 Migraine, unspecified, not intractable, without status migrainosus; M19.90 Unspecified osteoarthritis, unspecified site; M94.262 Chondromalacia, left knee; M94.261 Chondromalacia, right knee; F41.9 Anxiety disorder, unspecified; G89.29 Other chronic pain; M54.5 Low back pain; Z20.822 Contact with and (suspected) exposure to COVID-19; Z79.82 Long term (current) use of aspirin; Z79.891 Long term (current) use of opiate analgesic; Z79.84 Long term (current) use of oral hypoglycemic drugs; Z79.899 Other long term (current) drug therapy; Z88.1 Allergy status to other antibiotic agents; Z88.3 Allergy status to other anti-infective agents; Z91.041 Radiographic dye allergy status; Z88.0 Allergy status to penicillin; Z88.2 Allergy status to sulfonamides; Z88.8 Allergy status to other drugs, medicaments and biological substances; Z91.048 Other nonmedicinal substance allergy status; Z90.49 Acquired absence of other specified parts of digestive tract; Z95.5 Presence of coronary angioplasty implant and graft; Z98.891 History of uterine scar from previous surgery; Z96.651 Presence of right artificial knee joint; Z98.890 Other specified postprocedural states; Z87.891 Personal history of nicotine dependence; Z87.448 Personal history of other diseases of urinary system; Z83.3 Family history of diabetes mellitus; Z82.49 Family history of ischemic heart disease and other diseases of the circulatory system; Z83.49 Family history of other endocrine, nutritional and metabolic diseases; Z80.9 Family history of malignant neoplasm, unspecified
CPT/HCPCS: 99285; 36415; 93005; 80053; 83735; 84484; 85025; 85610; 85730; 87635; 71046; G0378; C8929; Q9950; 93306

== ENCOUNTER → 2022-02-24 | Outpatient (CLI) | payer OTHER ==
[~2022-02-24] MED LIST changes: -LACTATED RINGERS 1,000 ML IV SCH; -LIDOCAINE 1% (10MG/ML) FOR IV START INTRADERMA PRN; +REGADENOSON 0.4 MG/5 ML SYRINGE IV ONE
--- NOTE | 2022-02-24 12:21 | NM ---
EXAMINATION TYPE: NM stress lexiscan cardiolite DATE OF EXAM: 02/24/2022 COMPARISON: NONE HISTORY: chest pain TECHNIQUE: After the intravenous administration of 10.1 mCi Tc 99m Sestamibi - Cardiolite resting SP ECT images acquired 45 minutes post injection. The patient received 0.4mg Lexiscan, 24.9 mCi Tc 99m Sestamibi - Stress images obtained [address] injection FINDINGS: Review of stress and rest SPECT images demonstrates no distinct perfusion abnormality. Gated analysi s shows normal wall motion with an estimated left ventricular ejection fraction of 67 %. IMPRESSION: No scintigraphic evidence for reversible ischemia.
--- NOTE | 2022-02-24 12:32 | CA ---
Lexiscan Nuclear Stress Test Report Name: Breanna Dominguez Exam Date: 02/24/2022 09:28 Exam Location: [facility] Stress Ht (in): 64 Wt (lb): 220 BSA: 2.04 Ordering Phys: Angelo Min MD Referring Phys: ISSAC,, Technologist: Kurt Morales Age: 57 Gender: F : 1965 Procedure CPT: Indications: R07.9 CHEST PAIN ICD-10 Codes: Patient History: Medications: SEE LIST Meds past 24 hrs: Pretest Chest Pain: STRESS TEST Lexiscan Protocol Exercise Duration (min:sec): 02:[address] Depressions (mm): Angina Score: Doan Score: Resting HR (bpm): 83 Peak HR (bpm): 101 Resting BP (mmHg): 123 / 55 Peak BP (mmHg): 131 / 53 MPHR: 161 Target HR: 137 % MPHR: 63 METS: 1.0 Total Dose: Peak Dose: Atropine: Double Product: 92823 BP Response: Stress Termination: Stress Symptoms: HEADACHE Stress Summary: ECG ANALYSIS Resting ECG: Sinus rhythm. Normal conduction. No arrhythmias. Normal repolarization. Stress ECG: No ECG changes from baseline with Lexiscan infusion. CONCLUSIONS 1. Nondiagnostic electrocardiographic response 2. Nuclear images will be reported separately. Dr. Alvin Lewis MD (Electronically Signed) Final Date: 24 February 2022 12:31
== END | disposition home or self-care (01) ==
LOC: RADNMMAIN 07:39
PROVIDERS: ATTEND Internal Medicine Interventional Cardiology
DX: R07.9 Chest pain, unspecified (principal)
CPT/HCPCS: 93017; 78452; A9500

== ENCOUNTER → 2022-12-10 | Outpatient (CLI) | payer OTHER ==
--- NOTE | 2022-12-12 11:40 | CT ---
EXAMINATION TYPE: CT abdomen pelvis wo con DATE OF EXAM: 12/10/2022 COMPARISON: 04/11/2020 HISTORY: RLQ pain, hematuira CT DLP: 1143.4 mGycm Automated exposure control for dose reduction was used. TECHNIQUE: Helical acquisition of images was performed from the lung bases through the pelvis. FINDINGS: There is a small focal groundglass density in the right base. There are surgical absence of gallbladder. There is marked atrophy of the pancreas. There is no organ omegaly involving the liver, spleen or adrenal glands. The right kidney is malrotated. There are no right renal calcifications. There is a tiny calcificatio n in the medial left kidney. There is no hydronephrosis bilaterally. Caliber the abdominal aorta. The bowel loops are normal in caliber is no dilatation or obstruction. No inflammatory changes are id entified in the bowel wall or mesentery and there is no free intraperitoneal air or fluid. There is no pelvic mass, free fluid, abscess or adenopathy the osseous structures are intact. The abd ominal wall is intact IMPRESSION: 1. Small focal groundglass density in the right lung base medially. 2. Cholecystectomy. 3. Atrophy of the pancreas. 4.Tiny brenden-like nonobstructing ossification the left kidney and no right renal calcifications. No h ydronephrosis bilaterally.
== END | disposition home or self-care (01) ==
LOC: RADCTMAIN 18:21
PROVIDERS: ATTEND Urology
DX: K86.89 Other specified diseases of pancreas (principal); J98.4 Other disorders of lung; Z90.49 Acquired absence of other specified parts of digestive tract
CPT/HCPCS: 74176

== ENCOUNTER → 2023-03-02 | Outpatient (CLI) | payer OTHER ==
--- NOTE | 2023-03-02 16:31 | MR ---
EXAMINATION TYPE: MR brain wo con DATE OF EXAM: 03/02/2023 3:04 PM COMPARISON: MRI brain 01/31/2018 CLINICAL INDICATION:Female, 58 years old with history of G43.009; Headaches, migraines TECHNIQUE: Multi planar, multi sequence imaging was performed through the brain including: T1, T2, In version recovery, Diffusion weighted imaging, and gradient echo imaging. No gadolinium was given. FINDINGS: The wang-white junctions, ventricular system, and cisterns appear unremarkable. Minimal scattered fo ci of high T2 signal intensity are seen within the periventricular white matter. Midline structures s how no abnormality. Diffusion-weighted imaging shows no evidence of restricted diffusion. The suscept ibility weighted images do not reveal any evidence for micro-hemorrhage. Similar outpouching of the C SF into the skin skull inner plate slightly right of midline near the skull vertex not significantly changed from 2012 and could represent small meningocele/pseudomeningocele The bone marrow signal is within normal limits. Paranasal sinuses and mastoid air cells: Minimal mucosal thickening of the frontal sinuses. Visualized orbits: Orbital contents are intact. IMPRESSION: 1. No evidence of intracranial mass or acute/subacute infarct. 2. Minimal Nonspecific white matter changes, likely secondary to small vessel ischemic disease.
== END | disposition home or self-care (01) ==
LOC: RADMRIMAIN 13:58
PROVIDERS: ATTEND Psychiatry & Neurology Neurology
DX: G43.009 Migraine without aura, not intractable, without status migrainosus (principal); R90.82 White matter disease, unspecified
CPT/HCPCS: 70551